=== PATIENT | female | born 1970 | race Caucasian/White ===

== ENCOUNTER 2016-12-18 10:30 | Emergency (ER) | payer MEDICARE ==
[2016-12-18] MEDS ORDERED: Ibuprofen TAB* 600 MG PO ONE (11:03)
--- NOTE | 2016-12-18 11:18 | ED ---
Influenza-Like Illness - HPI Summary HPI Summary: Pt here w/ flu-like sx - started as a frontal SUMMERS last night after work which wrapped around to back of head. This improved w/ ibuprofen. She woke this morning w/ nasal congestion, sneezing, ST. Went to work and developed upper chest tightness w/ a dry cough and subjective fever/chills. Received influenza vaccine 3 days ago. Works at [employer]. H/o emphysema but does not use inhaler(s ) as breathing is typically well controlled. She does smoke. H/o PE which started as a leg clot - denies calf pain today and states her chest sx do NOT feel the same as PE which was a stabbing, knife-like pain - this is a dry cough w/ burning tight upper chest pain. Does not want to try breathing tx as she denies wheezing or SOB. Denies N/V/D, ab pain, rash, back pain, hemoptysis. - History of Current Complaint Chief Complaint: EDUpperRespComplaint Time Seen by Provider: 12/18/16 10:50 Hx Obtained From: Patient - Allergy/Home Medications Allergies/Adverse Reactions: Allergies Allergy/AdvReac Type Severity Reaction Status Date / Time Bee Venom Allergy Severe Anaphylatic Verified 02/12/16 09:46 Shock Ciprofloxacin [From Cipro] Allergy Mild Rash. Verified 02/12/16 09:46 DIFFICULTY BREATHING PMH/Surg Hx/FS Hx/Imm Hx Previously Healthy: Yes Endocrine/Hematology History: Reports: Hx Anticoagulant Therapy - coumadin FOR PE, Hx Thyroid Disease - HYPOTHYROID, Hx Anemia - A TEENAGER Denies: Hx Diabetes, Hx Systemic Lupus Erythematosus Cardiovascular History: Reports: Hx Hypercholesterolemia Denies: Hx Congestive Heart Failure Respiratory History: Reports: Hx Chronic Obstructive Pulmonary Disease (COPD), Hx Pulmonary Embolism - ABOUT 10 YEARS AGO, Other Respiratory Problems/ Disorders - Hx of pulmonary embolismin [id number] per Pt. GI History: Reports: Hx Gastroesophageal Reflux Disease - ON MEDICATION Denies: Other GI Disorders History: Denies: Hx Renal Disease Sensory History: Reports: Hx Contacts or Glasses - GLASSES FOR DISTANCE Denies: Hx Hearing Aid Opthamlomology History: Reports: Hx Contacts or Glasses - GLASSES FOR DISTANCE Psychiatric History: Reports: Hx Depression - ON MEDICATION FOR, Hx Schizophrenia - SCHIZOAFFECTIVE Denies: Hx Eating Disorder, Hx of Violent Episodes Against Others - Surgical History Surgery Procedure, Year, and Place: 10/2012, [facility] Hx Anesthesia Reactions: No - Immunization History Date of Tetanus Vaccine: 10 yrs ago Infectious Disease History: No Infectious Disease History: Denies: Traveled Outside the [place] in Last 30 Days - Family History Known Family History: Positive: Other - cancers - Social History Occupation: Employed Part-time - [employer] Alcohol Use: None Hx Substance Use: No Substance Use Type: Reports: None Hx Tobacco Use: Yes Smoking Status (MU): Current Every Day Smoker Type: Cigarettes Amount Used/How Often: 1/2 PPD Length of Time of Smoking/Using Tobacco: 10+ yrs Have You Smoked in the Last Year: No Review of Systems Constitutional: Other - see HPI Negative: Photophobia, Blurred Vision, Diplopia, Drainage, Erythema Positive: Sore Throat, Nasal Discharge. Negative: Ear Ache Negative: Palpitations, Chest Pain Positive: Cough. Negative: Shortness Of Breath Negative: Abdominal Pain, Vomiting, Diarrhea, Nausea Positive: no symptoms reported Musculoskeletal: Other - generalized myalgias Negative: Rash Positive: Headache - last night - okay today - see HPI. Negative: Weakness, Paresthesia, Numbness, Syncope, Slurred Speech Psychological: Normal - concerned All Other Systems Reviewed And Are Negative: Yes Physical Exam Triage Information Reviewed: Yes Vital Signs On Initial Exam: Initial Vitals Temp Pulse Resp BP Pulse Ox 98.7 F 113 20 131/73 100 12/18/16 10:33 12/18/16 10:33 12/18/16 10:33 12/18/16 10:33 12/18/16 10:33 Vital Signs Reviewed: Yes Appearance: Positive: Well-Appearing, No Pain Distress, Obese Skin: Positive: Warm, Dry - no rash observed Head/Face: Positive: Normal Head/Face Inspection - sinuses NTTP Eyes: Positive: Normal, EOMI, Conjunctiva Clear. Negative: Conjunctiva Inflammed, Discharge ENT: Positive: Normal ENT inspection, Hearing grossly normal, Pharynx normal - oral mucosa dry, Nasal congestion, TMs normal. Negative: Nasal drainage, Tonsillar swelling, Tonsillar exudate Neck: Positive: Supple, Nontender, No Lymphadenopathy Respiratory/Lung Sounds: Positive: Clear to Auscultation, Breath Sounds Present. Negative: Rales, Rhonchi, Stridor, Wheezes Cardiovascular: Positive: Normal, RRR, S1, S2. Negative: Leg Edema Left - (-) Shiloh's B/L, Leg Edema Right Abdomen Description: Positive: Nontender, No Organomegaly, Soft Bowel Sounds: Positive: Present Musculoskeletal: Positive: Normal, Strength/ROM Intact Neurological: Positive: Normal, Sensory/Motor Intact, Alert, Oriented to Person Place, Time, CN Intact II-III Psychiatric: Positive: Other - calm, pleasant, cooperative - concerned/anxious ( mild) - blunted affect Diagnostics - Vital Signs Vital Signs Temp Pulse Resp BP Pulse Ox 12/18/16 10:37 98.7 F 104 20 131/73 97 12/18/16 10:33 98.7 F 113 20 131/73 100 - Laboratory Lab Statement: Any lab studies that have been ordered have been reviewed, and results considered in the medical decision making process. Flu Symptom Course/Dx - Diagnoses Provider Diagnoses: Influenza B Discharge - Discharge Plan Condition: Stable Disposition: HOME Prescriptions: Oseltamivir CAP* [Tamiflu CAP*] 75 mg PO BID #10 cap Patient Education Materials: Influenza (ED) Forms: *Work Release Referrals: Arthur Rockwell MD [Primary Care Provider] - Additional Instructions: You have influenza. You are contagious. Wear a face mask and wash hands well. Return to work in 1 week. Follow-up with PCP. You may use supportive care measure to ease your discomfort. These include but are not limited to: Nasal wash (netti pot) & throat gargle 2 x day with 8 ounces of warm water + 1/ 4 teaspoon of salt Drink 60+ ounces of water daily Sleep 8+ hours per night Avoid Dairy and sugar Hot herbal/decaf tea with lemon & honey Chicken broth (preferably organic, free range chicken) Cough drops Humidifier in house, but especially near bed at night Try a facial steam with or without eucalyptus essential oil and/or Vicks vapor rub Consider taking Vitamin D3 5,000iu and Vitamin C 1,000mg every day during illness *If you have difficulty breathing, swallowing or fever > 103 uncontrolled w/ acetaminophen or ibuprofen, return to ED.
[2016-12-18 12:32] VITALS: BP 119/65
== END 2016-12-18 12:31 | disposition home or self-care (01) ==
LOC: ED 10:30
DX: J11.1 Influenza due to unidentified influenza virus with other respiratory manifestations (principal); R51 Headache; R50.9 Fever, unspecified; F17.210 Nicotine dependence, cigarettes, uncomplicated; J02.9 Acute pharyngitis, unspecified; R05 Cough; R19.7 Diarrhea, unspecified; R11.2 Nausea with vomiting, unspecified
CPT/HCPCS: 87502; 99282; A9270-GY

== ENCOUNTER 2017-07-30 07:56 | Emergency (ER) | payer MEDICARE ==
[2017-07-30 08:24] LABS: Hematocrit 44 % (35-47); Mean Corpuscular HGB Conc 34 g/dl (31-36); Mean Corpuscular Hemoglobin 33 pg (27-31); Mean Corpuscular Volume 96 fL (80-97); Mean Platelet Volume 9 um3 (7.4-10.4); Red Blood Count 4.56 10^6/ul (4.0-5.4); Red Cell Distribution Width 13 % (10.5-15); White Blood Count 8.2 10^3/ul (3.5-10.8)
--- NOTE | 2017-07-30 08:36 | RAD ---
INDICATION: Palpitations and shortness of breath. Fullness sensation in throat beginning a few days ago. Remote history of PE. COMPARISON: January 26, 2016 TECHNIQUE: Dual energy PA and routine lateral views of the chest were obtained. REPORT: Clear lungs and pleural spaces. Negative for pneumothorax. The heart, pulmonary vasculature, and mediastinal contours are unremarkable. Unremarkable osseous structures and soft tissue contours. IMPRESSION: No evidence for pneumonia. No evidence for acute intrathoracic disease.
[2017-07-30 08:46] LABS: Albumin 4.6 g/dL (3.2-5.2); BUN/Creatinine Ratio 11.8 (8-20); Calcium 10.2 mg/dL (8.6-10.3); EGFR African American 83.1 (>60); EGFR Non-African American 64.6 (>60); Globulin 3.6 g/dL (2-4); Magnesium 1.9 mg/dL (1.9-2.7); Potassium 3.4 mmol/L (3.5-5.0); Total Bilirubin 0.5 mg/dL (0.2-1.0); Total Protein 8.2 g/dL (6.4-8.9)
[2017-07-30] MEDS ORDERED: Potassium Chlor TAB* 20 MEQ TAB.ER PO ONE (08:58)
[2017-07-30 09:09] LABS: TSH (Thyroid Stimulating Horm) 5.32 mcIU/mL (0.34-5.60)
[2017-07-30 09:22] LABS: Urine Bilirubin Negative (Negative); Urine Glucose Negative (Negative); Urine Nitrite Negative (Negative)
[2017-07-30 10:12] VITALS: BP 124/78
--- NOTE | 2017-07-30 10:28 | ED ---
Elaine Villarreal Gabriel, scribed for Bryce Armas MD on 07/30/17 at 0810 . Shortness of Breath - HPI Summary HPI Summary: This patient is a 47 year old F presenting to [facility] with a chief complaint of SOB since yesterday. Patient reports palpitations described as fluttering, stomach acid rising into her throat, and fullness in her chest and throat. Patient denies CP and LE pain. She had two of these episodes yesterday and three today. She describes these as intermittent episodes that resolve spontaneously. - History of Current Complaint Chief Complaint: EDShortnessOfBreath Time Seen by Provider: 07/30/17 08:01 Hx Obtained From: Patient Onset/Duration: Lasting Days - 1, Still Present Alleviating Factors: Spontaneous Resolution Associated Signs & Symptoms: Negative - CP and LE pain - Allergy/Home Medications Allergies/Adverse Reactions: Allergies Allergy/AdvReac Type Severity Reaction Status Date / Time Bee Venom Allergy Severe Anaphylatic Verified 07/30/17 08:07 Shock Ciprofloxacin [From Cipro] Allergy Mild Rash. Verified 07/30/17 08:07 DIFFICULTY BREATHING PMH/Surg Hx/FS Hx/Imm Hx Previously Healthy: No Endocrine/Hematology History: Reports: Hx Anticoagulant Therapy - coumadin FOR PE, Hx Thyroid Disease - HYPOTHYROID, Hx Anemia - A TEENAGER Denies: Hx Diabetes, Hx Systemic Lupus Erythematosus Cardiovascular History: Reports: Hx Hypercholesterolemia Denies: Hx Congestive Heart Failure Respiratory History: Reports: Hx Chronic Obstructive Pulmonary Disease (COPD), Hx Pulmonary Embolism - ABOUT 10 YEARS AGO, Other Respiratory Problems/ Disorders - Hx of pulmonary embolismin [id number] per Pt. GI History: Reports: Hx Gastroesophageal Reflux Disease - ON MEDICATION Denies: Other GI Disorders History: Denies: Hx Renal Disease Sensory History: Reports: Hx Contacts or Glasses - GLASSES FOR DISTANCE Denies: Hx Hearing Aid Opthamlomology History: Reports: Hx Contacts or Glasses - GLASSES FOR DISTANCE Psychiatric History: Reports: Hx Depression - ON MEDICATION FOR, Hx Schizophrenia - SCHIZOAFFECTIVE Denies: Hx Eating Disorder, Hx of Violent Episodes Against Others - Surgical History Surgery Procedure, Year, and Place: 10/2012, [facility], Cholecystectomy Hx Anesthesia Reactions: No - Immunization History Date of Tetanus Vaccine: 10 yrs ago Infectious Disease History: No Infectious Disease History: Denies: Traveled Outside the [place] in Last 30 Days - Family History Known Family History: Positive: Hypertension, Other - cancers, blood clots - Social History Alcohol Use: None Hx Substance Use: No Substance Use Type: Reports: None Hx Tobacco Use: Yes Smoking Status (MU): Current Every Day Smoker Type: Cigarettes Amount Used/How Often: 3/4 PPD Length of Time of Smoking/Using Tobacco: 10+ yrs Have You Smoked in the Last Year: No Review of Systems Positive: Palpitations - described as fluttering. Negative: Chest Pain Positive: Shortness Of Breath Positive: Other - stomach acid rising into throat Musculoskeletal: Negative - LE pain All Other Systems Reviewed And Are Negative: Yes Physical Exam - Summary Physical Exam Summary: VITAL SIGNS: Reviewed. GENERAL: ~Patient is a well-developed and nourished female who is lying comfortable in hospital bed . ~Patient is not in any acute respiratory distress. HEAD AND FACE: No signs of trauma. ~No ecchymosis, hematomas or skull depressions. No sinus tenderness. EYES: PERRLA, EOMI x 2, No injected conjunctiva, no nystagmus. EARS: Hearing grossly intact. Ear canals and tympanic membranes are within normal limits. MOUTH: Oropharynx within normal limits. NECK: Supple, trachea is midline, no adenopathy, no JVD, no carotid bruit, no c- spine tenderness, neck with full ROM. CHEST: Symmetric, no tenderness at palpation LUNGS: Clear to auscultation bilaterally. No crackles. Wheezes present. CVS: Regular rhythm, S1 and S2 present, no murmurs or gallops appreciated. Patient is tachycardic. ABDOMEN: Soft, non-tender. No signs of distention. No rebound no guarding, and no masses palpated. Bowel sounds are normal. EXTREMITIES: FROM in all major joints, no edema, no cyanosis or clubbing. NEURO: Alert and oriented x 3. No acute neurological deficits. Speech is normal and follows commands. SKIN: Dry and warm Triage Information Reviewed: Yes Vital Signs On Initial Exam: Initial Vitals Temp Pulse Resp BP Pulse Ox 98.6 F 100 22 139/58 99 07/30/17 07:56 07/30/17 07:56 07/30/17 07:56 07/30/17 07:56 07/30/17 07:56 Vital Signs Reviewed: Yes Diagnostics - Vital Signs Vital Signs Temp Pulse Resp BP Pulse Ox 07/30/17 07:56 98.6 F 100 22 139/58 99 - Laboratory Lab Results: Lab Results 07/30/17 07/30/17 07/30/17 Range/Units 08:14 08:14 08:14 WBC 8.2 (3.5-10.8) 10^3/ul RBC 4.56 (4.0-5.4) 10^6/ul Hgb 15.0 (12.0-16.0) g/dl Hct 44 (35-47) % MCV 96 (80-97) fL MCH 33 H (27-31) pg MCHC 34 (31-36) g/dl RDW 13 (10.5-15) % Plt Count 208 (150-450) 10^3/ul MPV 9 (7.4-10.4) um3 Neut % (Auto) 50.0 (38-83) % Lymph % (Auto) 39.0 (25-47) % [place] % (Auto) 7.8 (1-9) % Eos % (Auto) 2.1 (0-6) % Baso % (Auto) 1.1 (0-2) % Absolute Neuts (auto) 4.1 (1.5-7.7) 10^3/ul Absolute Lymphs (auto) 3.2 (1.0-4.8) 10^3/ul Absolute Monos (auto) 0.6 (0-0.8) 10^3/ul Absolute Eos (auto) 0.2 (0-0.6) 10^3/ul Absolute Basos (auto) 0.1 (0-0.2) 10^3/ul Absolute Nucleated RBC 0 10^3/ul Nucleated RBC % 0 D-Dimer, Quantitative (Less Than 230) ng/mL Sodium 137 (133-145) mmol/L Potassium 3.4 L (3.5-5.0) mmol/L Chloride 106 (101-111) mmol/L Carbon Dioxide 25 (22-32) mmol/L Anion Gap 6 (2-11) mmol/L BUN 11 (6-24) mg/dL Creatinine 0.93 (0.51-0.95) mg/dL Est GFR ( Amer) 83.1 (>60) Est GFR (Non-Af Amer) 64.6 (>60) BUN/Creatinine Ratio 11.8 (8-20) Glucose 90 (70-100) mg/dL Lactic Acid (0.5-2.0) mmol/L Calcium 10.2 (8.6-10.3) mg/dL Magnesium 1.9 (1.9-2.7) mg/dL Total Bilirubin 0.50 (0.2-1.0) mg/dL AST 23 (13-39) U/L ALT 29 (7-52) U/L Alkaline Phosphatase 56 (34-104) U/L CK-MB (CK-2) 1.6 (0.6-6.3) ng/mL Troponin I 0.00 (<0.04) ng/mL B-Natriuretic Peptide 17 ( - 100) pg/mL Total Protein 8.2 (6.4-8.9) g/dL Albumin 4.6 (3.2-5.2) g/dL Globulin 3.6 (2-4) g/dL Albumin/Globulin Ratio 1.3 (1-3) TSH 5.32 (0.34-5.60) mcIU/mL Urine Color Urine Appearance Urine pH (5-9) Ur Specific [place] (1.010-1.030) Urine Protein (Negative) Urine Ketones (Negative) Urine Blood (Negative) Urine Nitrate (Negative) Urine Bilirubin (Negative) Urine Urobilinogen (Negative) Ur Leukocyte Esterase (Negative) Urine Glucose (Negative) 07/30/17 07/30/17 07/30/17 Range/Units 08:14 08:14 09:14 WBC (3.5-10.8) 10^3/ul RBC (4.0-5.4) 10^6/ul Hgb (12.0-16.0) g/dl Hct (35-47) % MCV (80-97) fL MCH (27-31) pg MCHC (31-36) g/dl RDW (10.5-15) % Plt Count (150-450) 10^3/ul MPV (7.4-10.4) um3 Neut % (Auto) (38-83) % Lymph % (Auto) (25-47) % [place] % (Auto) (1-9) % Eos % (Auto) (0-6) % Baso % (Auto) (0-2) % Absolute Neuts (auto) (1.5-7.7) 10^3/ul Absolute Lymphs (auto) (1.0-4.8) 10^3/ul Absolute Monos (auto) (0-0.8) 10^3/ul Absolute Eos (auto) (0-0.6) 10^3/ul Absolute Basos (auto) (0-0.2) 10^3/ul Absolute Nucleated RBC 10^3/ul Nucleated RBC % D-Dimer, Quantitative < 200 (Less Than 230) ng/mL Sodium (133-145) mmol/L Potassium (3.5-5.0) mmol/L Chloride (101-111) mmol/L Carbon Dioxide (22-32) mmol/L Anion Gap (2-11) mmol/L BUN (6-24) mg/dL Creatinine (0.51-0.95) mg/dL Est GFR ( Amer) (>60) Est GFR (Non-Af Amer) (>60) BUN/Creatinine Ratio (8-20) Glucose (70-100) mg/dL Lactic Acid 1.4 (0.5-2.0) mmol/L Calcium (8.6-10.3) mg/dL Magnesium (1.9-2.7) mg/dL Total Bilirubin (0.2-1.0) mg/dL AST (13-39) U/L ALT (7-52) U/L Alkaline Phosphatase (34-104) U/L CK-MB (CK-2) (0.6-6.3) ng/mL Troponin I (<0.04) ng/mL B-Natriuretic Peptide ( - 100) pg/mL Total Protein (6.4-8.9) g/dL Albumin (3.2-5.2) g/dL Globulin (2-4) g/dL Albumin/Globulin Ratio (1-3) TSH (0.34-5.60) mcIU/mL Urine Color Straw Urine Appearance Clear Urine pH 6.0 (5-9) Ur Specific [place] 1.003 L (1.010-1.030) Urine Protein Negative (Negative) Urine Ketones Negative (Negative) Urine Blood Negative (Negative) Urine Nitrate Negative (Negative) Urine Bilirubin Negative (Negative) Urine Urobilinogen Negative (Negative) Ur Leukocyte Esterase Negative (Negative) Urine Glucose Negative (Negative) Result Diagrams: 07/30/17 08:14 07/30/17 08:14 Lab Statement: Any lab studies that have been ordered have been reviewed, and results considered in the medical decision making process. - Radiology CXR Radiology Interpretation Completed By: Radiologist - No evidence for pneumonia. No evidence for acute intrathoracic disease. ED physician has reviewed this radiology report and agrees. - EKG 8:27 Cardiac Rate: NL EKG Rhythm: Sinus Rhythm - 88 BPM EKG Interpretation: No ST elevations, Normal axis Re-Evaluation - Re-Evaluation First Eval Re-Evaluation Time: 10:12 Change: Unchanged - Discussed patient care Course/Dx - Course Assessment/Plan: In the ED course an IV access was obtained. Patient was placed in a business excellence leader. Patient was started with IV fluids. Labs without any significant abnormality except for K+ for which she was given potassium chloride. Troponin #1: 0.00. EKG shows a NSR at w/o ST elevations. CXR impression: No acute pathology. D Dimer is negative therefore no suspicion for PE. Patient may benefit from a Holter monitor as an outpatient. I discussed all the findings and test results with the patient. Patient was instructed to return to the emergency room immediately if any of the symptoms return or worsens. Plan of care was discussed with the patient and understands and agrees. All questions were answered at patient satisfaction. There were no further complaints or concerns. Lung exam before discharge: CTA B/L. Good air exchange. No wheezing or crackles heard. CVS: S1 and S2 present. No murmurs appreciated. Patient is alert and oriented x 3. Patient is hemodynamically stable. Patient will be discharged home with follow up PCP in the next 2-3 days - Diagnoses Differential Diagnosis/HQI/PQRI: Positive: Asthma, Bronchitis, CHF, Pneumonia, Other - Arrythmia Provider Diagnoses: Palpitations Discharge - Discharge Plan Condition: Stable Disposition: HOME Patient Education Materials: Palpitations (ED) Referrals: Arthur Rockwell MD [Primary Care Provider] - 3 Days Additional Instructions: RETURN TO THE EMERGENCY DEPARTMENT FOR CHANGING OR WORSENING SYMPTOMS. The documentation as recorded by the Elaine jones Gabriel accurately reflects the service I personally performed and the decisions made by Pawel frey Walter, MD.
== END 2017-07-30 10:24 | disposition home or self-care (01) ==
LOC: ED 07:56
DX: R00.2 Palpitations (principal); R06.02 Shortness of breath; R06.2 Wheezing; F17.210 Nicotine dependence, cigarettes, uncomplicated
CPT/HCPCS: 36415; 71020; 80053; 81003; 82553; 83605; 83735; 83880; 84443; 84484; 85025; 85379; 93005; 99283; A9270-GY

== ENCOUNTER 2017-09-06 21:27 | Inpatient (IN) | payer BC, MEDICARE ==
--- OUTSIDE RECORDS SUMMARY | 2017-09-06 21:43 | XMS REPORT ---
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 Onset: 04/27/2012 Hypothyroidism Layla Aguilera, Active N.P. Onset: 04/27/2012 Overweight Layla Aguilera Active N.P. Onset: 04/27/2012 Tobacco user Layla Aguilera, Active N.P. Onset: 05/04/2012 Mixed hyperlipidemia Layla Aguilera, Active N.P. Onset: 05/04/2012 Hyperlipidemia Layla Aguilera, Active N.P. Onset: 02/10/2016 Cholecystectomy Duong Ruby NP Active Onset: 02/09/2017 High density lipoprotein Nguyen Kim M.D. Active deficiency Onset: 08/02/2017 H/O: pulmonary embolus Arthur Rockwell, Active Valerie,FACP Note: 2006 Onset: 05/18/2012 Chest pain Layla Aguilera N.PRobyn Inactive Inactive: 09/09/2012 Onset: 04/27/2012 Anticoagulants Prison Layla Aguilera N.PRobyn Inactive (Current) Use Encounter Inactive: 08/02/2017 Onset: 12/24/2016 Schizoaffective disorder Jonah Romero M.D. 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 Cigarette Use Patient is a current cigarette smoker, smokes every day Cigarette Use Pack Years - Cigarette Use 3 PPD ETOH Use Denies alcohol use Smoking Patient is a current smoker, Started 09/07 ppd smokes every day Daily Caffeine Consumes on average 5-10 cups of hot tea per day Exercise Type/Frequency Exercises regularly Walking Currently Active Patient is currently sexually active Condom Use Always Age 1st [place] 18 Years Old # Partners in a Lifetime over 10 STD's 02/2012 Trichomoniasis STD's HPV, High Risk General Hx Text 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 02/09 Nexium 01/[address] 20mg 14cap 1 by mouth Other s every day Ordering - Provider 02/09 Amoxicillin 05/30 Hx Capsules 500mg 30cap 1 tablet by K04.0 Duong s mouth tid x Tung, - 10 days WIRE ANNEALER 06/09 Levaquin 02/25 Hx Tablets 500mg 10tab 1 by mouth 789.04 Randall s every day Shavon Navarrete M.D. 02/26 Metronidazole 02/25 Hx Tablets 500mg 30tab 1 by mouth 789.04 Randall s three times a Navarrete, - day M.D. 02/26 Bactrim DS 02/25 Hx Tablets 800-160mg 10tab 1 by mouth Randall s twice a day Shavon Navarrete M.DRobyn 05/21 Fluticasone 07/17 Hx Suspension 50mcg/Act 1unit 2 sprays each 465.8 Duong Propionate s nare daily Tung - x's 4 weeks WIRE ANNEALER 08/14 Ibuprofen 07/17 Hx Tablets 400mg 45tab 1 tab po 729.5 Duong s every 6 hours Tung, - prn for pain WIRE ANNEALER 02/24 Flovent HFA 01/18 Hx Aerosol 1unit 2 puffs twice Mont[place], s daily Shavon Marquez MD 02/14 Levothyroxine 12/07 Hx Tablets 75mcg 30tab take one tab Bryce E. Sodium s by mouth Cherri - every day M.D. 02/09 Symbicort 05/24 Hx Aerosol 160-4.5mc 1unit 2 puffs po Layla g/Act s bid [place]-[facility] - [place], 11/29 N.P. /2013 Flonase 05/24 Hx Suspension 50mcg/Act 16gm 2 sprays into 477.9 Layla each nostril Celio - qhs [place], 11/29 N.P. /2013 Ventolin HFA 05/24 Hx Aerosol 108(90Bas 1unit 2 puffs po Layla e) s qid prn [place] - mcg/Act [place], 11/29 N.P. /2013 Aspirin 04/04 Hx Tablets 81mg 90tab 1 po qd Shavon Bloom M.D.,[facility] 07/17 Metformin HCL 03/22 Hx Tablets 1000mg 60tab 1 po bid 278.02 s Shavon Be M.D.,[facility] 05/24 Warfarin 12/12 Hx Tablets 4mg 30tab take one s tablet daily Shavon Be M.D.,[facility] 04/04 [place] 3 11/16 Hx Capsules 1000mg 90cap 3 by mouth 272.2 s every day Shavon Be M.D.,[facility] 02/24 Coumadin 11/11 Hx Tablets 1mg 15tab 1 po qd with s 5mg as Martín Rockwell - [place] Padilla,[facility] 12/12 Lovenox 10/20 Hx Solution 100mg/ml 10uni 1 ts subcutaneousl [place] - y q12h as [place], 11/16 directed N.P. /2012 Phytonandione 10/20 Hx Tablets 5mg 4tabs 1 po x1 now and again in [facility] 3-4 hrs X1, [place], 01/18 then as N.P. /2013 directed Warfarin 09/12 Hx Tablets 2.5mg take one tab Layla Sodium po wednesday, [place] - wednesday, [place], 11/11, N.P. /2012 and wednesday T.E.D. Below 06/17 Hx Misc 1Pair please fit 782.3 Yarelis Knee/Medium /2011 Melecio, - N.P. 07/17 Warfarin 05/18 Hx Tablets 2.5mg 40tab take one tab Layla Sodium /2011 s po Wednesday, [place] - , [place], 09/12 N.P. /2012 Pravastatin 05/04 Hx Tablets 10mg 30tab take one tab 272.4 Layla Sodium /2011 s daily in the [place] - evening [place], 05/18 N.P. /2011 [place] 3 05/04 Hx Capsules 1000mg 90cap 3 po qd 272.4 Layla s [place] - [place], 05/18 N.P. /2011 Warfarin Hx Tablets 5mg 30tab take one pill Layla Sodium /0000 s Wednesday and [place] - Wednesday [place], 12/12 N.P. /2012 Levothyroxine Hx Tablets 50mcg 90tab 1 po qd Arthur Sodium / s Shavon Be M.D.,FACP 12/07 Sertraline HCL Hx Tablets 100mg 30tab 1 po qd Unknown /0000 s - 02/24 Benztropine Hx Tablets 0.5mg 30tab 1 po qhs Unknown Mesylate /0000 s - 02/24 Fish Oil Hx Capsules 300mg 1 po qd Alyla / ats, 11/16 N.P. /2012 Flovent HFA Hx Aerosol 1unit Hold until Unknown /0000 s symbicort is - gone. Then 11/29 resume puffs twice daily Abilify Hx Suspension 400mg Patient Unknown Maintena /0000 Rec receives - 400mg 12/23 injection /2016 form Medications Administered in Office Medication Date Status Form Strength Qnty SIG Indications Ordering Provider PPD Administered Injection Nurse Visit 4 [place] PPD Administered Injection Layla 3 [place] on, N.P. Immunizations CPT Code Status Date Vaccine Lot # [id number] Given 06/06/2017 Influenza Virus Vaccine, Quadrivalent, Split, Preservative Free [id number] Given 02/14/2014 Tdap - Tetanus/Diptheria/Acellular Pertussis [id number] Given 10/24/2012 Measles Mumps And Rubella MMR [id number] Given 09/06/2003 Pneumonia Vaccine Vital Signs Date Vital Result Comment 08/02/2017 Weight 215.56 lb Heart Rate 79 /min BP Systolic Sitting 115 mmHg BP Diastolic Sitting 70 mmHg O2 % BldC Oximetry 99 % 02/09/2017 Weight 211.00 lb Heart Rate 88 /min BP Systolic Sitting 110 mmHg BP Diastolic Sitting 70 mmHg Respiratory Rate 16 /min Body Temperature 96.8 F O2 % BldC Oximetry 97 % 12/24/2016 Height 69 inches 5'9" Weight 219.00 lb Heart Rate 100 /min BP Systolic Sitting 116 mmHg BP Diastolic Sitting 88 mmHg Body Temperature 97.9 F O2 % BldC Oximetry 97 % BMI (Body Mass Index) 32.3 kg/m2 01/27/2016 Height 69 inches 5'9" Weight 213.00 lb Heart Rate 98 /min BP Systolic Sitting 118 mmHg BP Diastolic Sitting 84 mmHg Body Temperature 98.7 F O2 % BldC Oximetry 98 % BMI (Body Mass Index) 31.5 kg/m2 12/04/2015 Height 69 inches 5'9" Weight 210.00 lb Heart Rate 80 /min BP Systolic Sitting 114 mmHg BP Diastolic Sitting 78 mmHg Body Temperature 97.8 F O2 % BldC Oximetry 98 % BMI (Body Mass Index) 31.0 kg/m2 10/11/2015 Height 69 inches 5'9" Weight 214.00 lb Heart Rate 102 /min BP Systolic Sitting 110 mmHg BP Diastolic Sitting 68 mmHg Body Temperature 96.5 F O2 % BldC Oximetry 96 % BMI (Body Mass Index) 31.6 kg/m2 05/30/2015 Height 69 inches 5'9" Weight 207.00 lb Heart Rate 76 /min BP Systolic Sitting 112 mmHg BP Diastolic Sitting 70 mmHg Body Temperature 97.3 F O2 % BldC Oximetry 98 % BMI (Body Mass Index) 30.6 kg/m2 05/21/2015 Height 69 inches 5'9" Weight 208.00 lb Heart Rate 71 /min BP Systolic Sitting 126 mmHg BP Diastolic Sitting 78 mmHg Body Temperature 97.1 F O2 % BldC Oximetry 97 % BMI (Body Mass Index) 30.7 kg/m2 02/25/2015 Height 69 inches 5'9" Weight 198.38 lb Heart Rate 102 /min BP Systolic Sitting 104 mmHg BP Diastolic Sitting 66 mmHg Body Temperature 98.0 F O2 % BldC Oximetry 98 % BMI (Body Mass Index) 29.3 kg/m2 07/27/2014 Height 69 inches 5'9" Weight 212.00 lb Heart Rate 73 /min BP Systolic 115 mmHg BP Diastolic 74 mmHg BMI (Body Mass Index) 31.3 kg/m2 07/17/2014 Weight 220.75 lb Heart Rate 80 /min BP Systolic Sitting 132 mmHg BP Diastolic Sitting 76 mmHg Respiratory Rate 16 /min Body Temperature 98.9 F O2 % BldC Oximetry 97 % 04/23/2014 Weight 223.75 lb Heart Rate 88 /min BP Systolic Sitting 118 mmHg BP Diastolic Sitting 72 mmHg Body Temperature 96.9 F 02/28/2014 Height 68.25 inches 5'8.25" Weight 227.50 lb Heart Rate 88 /min BP Systolic Sitting 118 mmHg BP Diastolic Sitting 68 mmHg Body Temperature 98.0 F BMI (Body Mass Index) 34.3 kg/m2 02/14/2014 Height 68.5 inches 5'8.50" Weight 229.75 lb Heart Rate 84 /min BP Systolic Sitting 106 mmHg BP Diastolic Sitting 66 mmHg Body Temperature 96.7 F BMI (Body Mass Index) 34.4 kg/m2 01/18/2014 Weight 230.50 lb Heart Rate 78 /min BP Systolic Sitting 124 mmHg BP Diastolic Sitting 78 mmHg Body Temperature 98.5 F O2 % BldC Oximetry 97 % 11/29/2013 Weight 230.00 lb Heart Rate 90 /min BP Systolic Sitting 132 mmHg BP Diastolic Sitting 82 mmHg 05/24/2013 Height 68 inches 5'8" Weight 225.50 lb Heart Rate 88 /min BP Systolic Sitting 106 mmHg BP Diastolic Sitting 66 mmHg BMI (Body Mass Index) 34.3 kg/m2 03/22/2013 Height 68.25 inches 5'8.25" Weight 223.00 lb Heart Rate 82 /min BP Systolic Sitting 106 mmHg BP Diastolic Sitting 70 mmHg BMI (Body Mass Index) 33.7 kg/m2 01/04/2013 Height 68.25 inches 5'8.25" Weight 223.25 lb Heart Rate 84 /min BP Systolic Sitting 120 mmHg BP Diastolic Sitting 74 mmHg BMI (Body Mass Index) 33.7 kg/m2 11/16/2012 Height 68.25 inches 5'8.25" Weight 222.00 lb Heart Rate 78 /min BP Systolic Sitting 140 mmHg BP Diastolic Sitting 82 mmHg BMI (Body Mass Index) 33.5 kg/m2 10/19/2012 Height 68.25 inches 5'8.25" Weight 228.75 lb Heart Rate 78 /min BP Systolic Sitting 130 mmHg BP Diastolic Sitting 78 mmHg BMI (Body Mass Index) 34.5 kg/m2 06/17/2012 Height 68.25 inches 5'8.25" Weight 221.00 lb Heart Rate 62 /min BP Systolic Sitting 110 mmHg BP Diastolic Sitting 82 mmHg Body Temperature 97.2 F lt ear BMI (Body Mass Index) 33.4 kg/m2 05/18/2012 Height 68.25 inches 5'8.25" Weight 219.00 lb Heart Rate 76 /min BP Systolic Sitting 112 mmHg BP Diastolic Sitting 70 mmHg BMI (Body Mass Index) 33.1 kg/m2 05/04/2012 Height 68.25 inches 5'8.25" Weight 221.00 lb Heart Rate 70 /min BP Systolic Sitting 100 mmHg BP Diastolic Sitting 76 mmHg BMI (Body Mass Index) 33.4 kg/m2 04/27/2012 Height 68.25 inches 5'8.25" Weight 218.00 lb Heart Rate 80 /min BP Systolic Sitting 118 mmHg BP Diastolic Sitting 64 mmHg Body Temperature 98.0 F lt ear BMI (Body Mass Index) 32.9 kg/m2 Results Test Date Test Result H/L Range Note Urinalysis Profile 07/30/2017 Urine Color Straw Urine Appearance Clear Urine Specific Isabella 1.003 Low 1.010-1.030 Urine pH 6.0 5-9 Urine Urobilinogen Negative Negative Urine Ketones Negative Negative Urine Protein Negative Negative Urine Leukocytes Negative Negative Urine Blood Negative Negative Urine Nitrite Negative Negative Urine Bilirubin Negative Negative Urine Glucose Negative Negative Laboratory test finding 01/13/2017 TSH (Thyroid Stim Horm) 3.86 mcIU/mL 0.34-5.60 Lipid Profile 01/13/2017 Triglycerides 192 mg/dL 1 (Trig/Chol/HDL) Cholesterol 187 mg/dL 2 HDL Cholesterol 30.5 mg/dL 3 LDL Cholesterol 118 mg/dL 4 Rapid Influenza A & B 12/18/2016 Influenza A Molecular NEGATIVE Negative 5 Molecular Influenza B Molecular POSITIVE Negative Laboratory test finding 12/18/2016 Rapid Influenza A B SEE RESULT BELOW 6 Antigen Ua Routine 01/27/2016 Ua Specific Isabella 1.015 Ua PH 5 Ua Color yellow Ua Appera clear Ua WBC neg Ua Protein neg Ua Glucose neg Ua Ketones neg Ua Bilirubin neg Ua Urobilinogen normal Ua Nitrite neg Ua Occult Blood neg Comp Metabolic Panel 01/26/2016 Sodium 136 mmol/L 133-145 Potassium 3.8 mmol/L 3.5-5.0 Chloride 107 mmol/L 101-111 Co2 Carbon Dioxide 21 mmol/L Low 22-32 Anion Gap 8 mmol/L 2-11 Glucose 89 mg/dL 70-100 Blood Urea Nitrogen 11 mg/dL 6-24 Creatinine 0.84 mg/dL 0.51-0.95 BUN/Creatinine Ratio 13.1 8-20 Calcium 9.8 mg/dL 8.6-10.3 Total Protein 7.5 g/dL 6.4-8.9 Albumin 4.6 g/dL 3.2-5.2 Globulin 2.9 g/dL 2-4 Albumin/Globulin Ratio 1.6 1-3 Total Bilirubin 0.30 mg/dL 0.2-1.0 Alkaline Phosphatase 44 U/L 34-104 Alt 22 U/L 7-52 Ast 19 U/L 13-39 Egfr Non- 73.3 >60 Egfr 94.3 >60 7 Laboratory test finding 01/26/2016 Troponin-I (TnI) 0.00 ng/mL <0.03 8 CBC Auto Diff 01/26/2016 White Blood Count 8.3 10^3/uL 3.5-10.8 Red Blood Count 4.39 10^6/uL 4.0-5.4 Hemoglobin 14.3 g/dL 12.0-16.0 Hematocrit 43 % 35-47 Mean Corpuscular Volume 98 fL High 80-97 Mean Corpuscular Hemoglobin 33 pg High 27-31 Mean Corpuscular HGB Conc 33 g/dL 31-36 Red Cell Distribution Width 12 % 10.5-15 Platelet Count 161 10^3/uL 150-450 Mean Platelet Volume 10 um3 7.4-10.4 Abs Neutrophils 4.1 10^3/uL 1.5-7.7 Abs Lymphocytes 3.4 10^3/uL 1.0-4.8 Abs Monocytes 0.5 10^3/uL 0-0.8 Abs Eosinophils 0.3 10^3/uL 0-0.6 Abs Basophils 0.1 10^3/uL 0-0.2 Abs Nucleated RBC 0.01 10^3/uL Granulocyte % 49.5 % 38-83 Lymphocyte % 40.4 % 25-47 Monocyte % 6.4 % 1-9 Eosinophil % 3.1 % 0-6 Basophil % 0.6 % 0-2 Nucleated Red Blood Cells % 0.1 Laboratory test 01/26/2016 D Dimer Quantitative < 200 ng/mL Less Than 230 9 finding HIV 1/2 AB 12/04/2015 HIV 1 2 Antibody Nonreactive Nonreactive 10 Evaluation CBC Auto Diff 10/11/2015 White Blood Count 8.2 10^3/uL 3.5-10.8 Red Blood Count 4.35 10^6/uL 4.0-5.4 Hemoglobin 14.1 g/dL 12.0-16.0 Hematocrit 43 % 35-47 Mean Corpuscular Volume 98 fL High 80-97 Mean Corpuscular Hemoglobin 32 pg High 27-31 Mean Corpuscular HGB Conc 33 g/dL 31-36 Red Cell Distribution Width 12 % 10.5-15 Platelet Count 179 10^3/uL 150-450 Mean Platelet Volume 10 um3 7.4-10.4 Abs Neutrophils 4.0 10^3/uL 1.5-7.7 Abs Lymphocytes 3.4 10^3/uL 1.0-4.8 Abs Monocytes 0.5 10^3/uL 0-0.8 Abs Eosinophils 0.2 10^3/uL 0-0.6 Abs Basophils 0 10^3/uL 0-0.2 Abs Nucleated RBC 0.01 10^3/uL Granulocyte % 48.1 % 38-83 Lymphocyte % 41.7 % 25-47 Monocyte % 6.7 % 1-9 Eosinophil % 3.0 % 0-6 Basophil % 0.5 % 0-2 Nucleated Red Blood Cells % 0.1 Comp Metabolic Panel 10/11/2015 Sodium 137 mmol/L 133-145 Potassium 4.2 mmol/L 3.5-5.0 Chloride 106 mmol/L 101-111 Co2 Carbon Dioxide 25 mmol/L 22-32 Anion Gap 6 mmol/L 2-11 Glucose 96 mg/dL 70-100 Blood Urea Nitrogen 13 mg/dL 6-24 Creatinine 0.80 mg/dL 0.51-0.95 BUN/Creatinine Ratio 16.3 8-20 Calcium 9.2 mg/dL 8.6-10.3 Total Protein 6.9 g/dL 6.4-8.9 Albumin 4.3 g/dL 3.2-5.2 Globulin 2.6 g/dL 2-4 Albumin/Globulin Ratio 1.7 1-3 Total Bilirubin 0.30 mg/dL 0.2-1.0 Alkaline Phosphatase 48 U/L 34-104 Alt 28 U/L 7-52 Ast 22 U/L 13-39 Egfr Non- 77.6 >60 Egfr 99.8 >60 11 Laboratory test finding 10/11/2015 TSH (Thyroid Stim 2.37 ?IU/mL 0.34- 5.60 Horm) Hepatitis Acute Panel 10/11/2015 Hepatitis B Surface Nonreactive Nonreactive Antigen Hepatitis B Core IgM Nonreactive Nonreactive Hepatitis A AB IgM Nonreactive Nonreactive Hepatitis C Antibody Nonreactive Nonreactive Urinalysis Profile 10/11/2015 Urine Color Yellow Urine Appearance Cloudy Urine Specific Isabella 1.021 1.010-1.030 Urine pH 6.0 5-9 Urine Urobilinogen Negative Negative Urine Ketones Negative Negative Urine Protein Negative Negative Urine Leukocytes Negative Negative Urine Blood Negative Negative Urine Nitrite Negative Negative Urine Bilirubin Negative Negative Urine Glucose Negative Negative Hepatitis B Twyla AB Titer 05/31/2015 Hepatitis B Surface AB Reactive Nonreactive Hep B Surf AB Level 25.88 mIU/mL <12 12 Urinalysis Profile 10/25/2014 Urine Color April Urine Appearance Cloudy Urine Specific Isabella 1.028 1.010-1.030 Urine pH 6.0 5-9 Urine Urobilinogen Positive Negative Urine Ketones 1+ Negative Urine Protein 1+(30 mg/dL) Negative Urine Leukocytes Negative Negative Urine Blood Negative Negative Urine Nitrite Negative Negative Urine Bilirubin Negative Negative Urine Glucose Negative Negative Urine White Blood Cell Trace(0-5/hpf) Absent Urine Red Blood Cell 1+(3-5/hpf) Absent Urine Bacteria Absent Absent Urine Squamous Epithelial Cell Present Absent Urine Drug SCR ED 10/25/2014 Amphetamine Ur Screen None Detected None Detect & [facility] Barbiturates Urine Screen None Detected None Detect Benzodiazepine Urine Screen None Detected None Detect Urine Cannabinoids Screen None Detected None Detect Urine Cocaine Screen None Detected None Detect Urine Opiates Screen None Detected None Detect Urine Phencyclidine Screen None Detected None Detect 13 CBC Auto Diff 10/25/2014 White Blood Count 13.6 10^3/uL High 4.8-10.8 Red Blood Count 4.94 10^6/uL 4.0-5.4 Hemoglobin 16.1 g/dL High 12.0-16.0 Hematocrit 48 % High 35-47 Mean Corpuscular Volume 97 fL 80-97 Mean Corpuscular Hemoglobin 33 pg High 27-31 Mean Corpuscular HGB Conc 34 g/dL 31-36 Red Cell Distribution Width 12 % 10.5-15 Platelet Count 202 10^3/uL 150-450 Mean Platelet Volume 10 um3 7.4-10.4 Abs Neutrophils 8.2 10^3/uL High 1.5-7.7 Abs Lymphocytes 4.4 10^3/uL 1.0-4.8 Abs Monocytes 0.9 10^3/uL High 0-0.8 Abs Eosinophils 0.1 10^3/uL 0-0.6 Abs Basophils 0.1 10^3/uL 0-0.2 Abs Nucleated RBC 0.01 10^3/uL Granulocyte % 60.5 % 38-83 Lymphocyte % 32.2 % 25-47 Monocyte % 6.2 % 1-9 Eosinophil % 0.6 % 0-6 Basophil % 0.5 % 0-2 Nucleated Red Blood Cells % 0.1 Comp Metabolic Panel 10/25/2014 Sodium 136 mmol/L 133-145 Potassium 4.1 mmol/L 3.5-5.0 Chloride 105 mmol/L 101-111 Co2 Carbon Dioxide 20 mmol/L Low 22-32 Anion Gap 11 mmol/L 2-11 Glucose 90 mg/dL 70-100 Blood Urea Nitrogen 17 mg/dL 6-24 Creatinine 0.88 mg/dL 0.51-0.95 BUN/Creatinine Ratio 19.3 8-20 Calcium 10.6 mg/dL High 8.6-10.3 Total Protein 8.5 g/dL 6.4-8.9 Albumin 5.1 g/dL 3.2-5.2 Globulin 3.4 g/dL 2-4 Albumin/Globulin Ratio 1.5 1-3 Total Bilirubin 0.90 mg/dL 0.2-1.0 Alkaline Phosphatase 55 U/L 34-104 Alt 40 U/L 7-52 Ast 30 U/L 13-39 Egfr Non- 69.8 >60 Egfr 89.8 >60 14 Laboratory test finding 10/25/2014 Acetaminophen < 15 g/mL 15 Alcohol < 10 mg/dL <10 Salicylate < 2.50 mg/dL <30 TSH (Thyroid Stimulating Horm) 5.11 IU/mL 0.34-5.60 Serum Negative Negative 16 Stool For Blood 05/02/2014 Stool Occult Blood (SEE NOTE) 17 CBC Auto Diff 05/02/2014 White Blood Count 10.1 10^3/uL 4.8-10.8 Red Blood Count 4.47 10^6/uL 4.0-5.4 Hemoglobin 14.9 g/dL 12.0-16.0 Hematocrit 43 % 35-47 Mean Corpuscular Volume 96 fL 80-97 Mean Corpuscular Hemoglobin 33 pg High 27-31 Mean Corpuscular HGB Conc 35 g/dL 31-36 Red Cell Distribution Width 13 % 10.5-15 Platelet Count 211 10^3/uL 150-450 Mean Platelet Volume 9 um3 7.4-10.4 Abs Neutrophils 5.0 10^3/uL 1.5-7.7 Abs Lymphocytes 3.6 10^3/uL 1.0-4.8 Abs Monocytes 0.6 10^3/uL 0-0.8 Abs Eosinophils 0.7 10^3/uL High 0-0.6 Abs Basophils 0.1 10^3/uL 0-0.2 Abs Nucleated RBC 0.01 10^3/uL Granulocyte % 49.7 % 38-83 Lymphocyte % 35.9 % 25-47 Monocyte % 6.2 % 1-9 Eosinophil % 7.2 % High 0-6 Basophil % 1.0 % 0-2 Nucleated Red Blood Cells % 0.1 Laboratory test finding 05/02/2014 Lactic Acid 0.9 mmol/L 0.5-2.2 Comp Metabolic Panel 05/02/2014 Sodium 136 mmol/L 133-145 Potassium 3.8 mmol/L 3.7-5.6 Chloride 107 mmol/L 101-111 Co2 Carbon Dioxide 23 mmol/L 22-32 Anion Gap 6 mmol/L 2-11 Glucose 103 mg/dL High 70-100 Blood Urea Nitrogen 15 mg/dL 6-24 Creatinine 0.88 mg/dL 0.51-0.95 BUN/Creatinine Ratio 17.0 8-20 Calcium 9.7 mg/dL 8.6-10.3 Total Protein 7.9 g/dL 6.4-8.9 Albumin 4.6 g/dL 3.2-5.2 Globulin 3.3 g/dL 2-4 Albumin/Globulin Ratio 1.4 1-3 Total Bilirubin 0.30 mg/dL 0.2-1.0 Alkaline Phosphatase 57 U/L 34-104 Alt 33 U/L 7-52 Ast 25 U/L 13-39 Egfr Non- 69.8 >60 Egfr 89.8 >60 18 Laboratory test finding 05/02/2014 Magnesium 2.0 mg/dL 1.9-2.7 19 Amylase 18 U/L Low 29-103 Lipase 27 U/L 11.0-82.0 Creatine Kinase 128 U/L 10-223 C Reactive Protein 3.63 mg/L < 5.00 20 Laboratory test finding 02/09/2014 Alt 50 U/L 7-52 Ast 34 U/L 13-39 Laboratory test finding 01/18/2014 TSH (Thyroid Stimulating 2.26 IU/mL 0.34-5.60 Horm) Laboratory test finding 01/18/2014 B Type Natriuretic 26 pg/mL 21 Peptide CBC Auto Diff 01/18/2014 White Blood Count 8.0 10^3/uL 4.8-10.8 Red Blood Count 4.11 10^6/uL 4.0-5.4 Hemoglobin 13.5 g/dL 12.0-16.0 Hematocrit 39 % 35-47 Mean Corpuscular Volume 96 fL 80-97 Mean Corpuscular Hemoglobin 33 pg High 27-31 Mean Corpuscular HGB Conc 34 g/dL 31-36 Red Cell Distribution Width 13 % 10.5-15 Platelet Count 188 10^3/uL 150-450 Mean Platelet Volume 9 um3 7.4-10.4 Abs Neutrophils 3.8 10^3/uL 1.5-7.7 Abs Lymphocytes 3.4 10^3/uL 1.0-4.8 Abs Monocytes 0.5 10^3/uL 0-0.8 Abs Eosinophils 0.2 10^3/uL 0-0.6 Abs Basophils 0.1 10^3/uL 0-0.2 Abs Nucleated RBC 0.01 10^3/uL Granulocyte % 47.5 % 38-83 Lymphocyte % 42.2 % 25-47 Monocyte % 6.5 % 1-9 Eosinophil % 3.0 % 0-6 Basophil % 0.8 % 0-2 Nucleated Red Blood Cells % 0.1 Comp Metabolic Panel 01/18/2014 Sodium 139 mmol/L 133-145 Potassium 3.7 mmol/L 3.7-5.6 Chloride 108 mmol/L 101-111 Co2 Carbon Dioxide 26 mmol/L 22-32 Anion Gap 5 mmol/L 2-11 Glucose 75 mg/dL 70-100 Blood Urea Nitrogen 8 mg/dL 6-24 Creatinine 0.83 mg/dL 0.51-0.95 BUN/Creatinine Ratio 9.6 8-20 Calcium 9.4 mg/dL 8.6-10.3 Total Protein 7.6 g/dL 6.4-8.9 Albumin 4.4 g/dL 3.2-5.2 Globulin 3.2 g/dL 2-4 Albumin/Globulin Ratio 1.4 1-3 Total Bilirubin 0.40 mg/dL 0.2-1.0 Alkaline Phosphatase 54 U/L 34-104 Alt 59 U/L High 7-52 Ast 45 U/L High 13-39 Egfr Non- 75.0 >60 Egfr 96.5 >60 22 Urinalysis 01/18/2014 Urine Color Yellow Urine Appearance Clear Urine Specific Isabella 1.003 Low 1.010-1.030 Urine Esterase Negative Negative Urine Nitrate Negative Negative Urine Urobilinogen Negative E.U./dL Negative Urine Protein Negative mg/dL Negative Urine pH 7.0 5-9 Urine Blood 1+ Negative Urine Ketones Negative mg/dL Negative Urine Bilirubin Negative Negative Urine Glucose Negative mg/dL Negative Urine Culture And Sensitivities 01/18/2014 Urine Culture (SEE NOTE) 23 Urine Microscopic 01/18/2014 Urine WBC None Seen None Seen Urine RBC 1+ (<3 /hpf) None Seen Urine Epithelial Cells 1+ Squamous /hpf None Seen Bacteria Urine 1+ None Seen Ua Routine 01/18/2014 Ua Specific Isabella 1.005 Ua PH 5 Ua Color pale Ua Appera clear Ua WBC neg Ua Protein neg Ua Glucose neg Ua Ketones neg Ua Bilirubin neg Ua Urobilinogen normal Ua Nitrite neg Ua Occult Blood small Laboratory test 12/05/2013 Glucose Fingerstick 94 finding Laboratory test 12/05/2013 TSH (Thyroid 5.61 IU/mL High 0.34-5.60 24, 25 finding Stimulating Horm) Free T4 0.63 ng/mL 0.61-1.12 24, 26 Lipid Profile (Trig/Chol/HDL) 12/05/2013 Triglycerides 260 mg/dL 24, 27 Cholesterol 236 mg/dL 24, 28 HDL Cholesterol 31.1 mg/dL 24, 29 LDL Cholesterol 153 mg/dL 24, 30 Comp Metabolic Panel 12/05/2013 Sodium 137 mmol/L 133-145 24 Potassium 3.8 mmol/L 3.7-5.6 24 Chloride 106 mmol/L 101-111 24 Co2 Carbon Dioxide 23 mmol/L 22-32 24 Anion Gap 8 mmol/L 2-11 24 Glucose 80 mg/dL 70-100 24 Blood Urea Nitrogen 13 mg/dL 6-24 24 Creatinine 0.86 mg/dL 0.51-0.95 24 BUN/Creatinine Ratio 15.1 8-20 24 Calcium 9.5 mg/dL 8.6-10.3 24 Total Protein 7.3 g/dL 6.4-8.9 24 Albumin 4.6 g/dL 3.2-5.2 24 Globulin 2.7 g/dL 2-4 24 Albumin/Globulin Ratio 1.7 1-3 24 Total Bilirubin 0.40 mg/dL 0.2-1.0 24 Alkaline Phosphatase 55 U/L 34-104 24 Alt 55 U/L High 7-52 24 Ast 39 U/L 13-39 24 Egfr Non- 72.0 >60 24 Egfr 92.6 >60 24, 31 Laboratory test 07/18/2013 Urine Negative Negative 32 finding Laboratory test 04/03/2013 D Dimer Quantitative < 200 ng/mL Less Than 230 33 finding Vitamin B12 245 pg/mL 180-914 TSH (Thyroid Stimulating Horm) 1.91 miu/mL 0.34-5.60 Protime W/ Inr 03/22/2013 Prothrombin Time 24.7 Inr 2.1 Laboratory test finding 03/14/2013 Inr 5.29 High 0.87-0.97 Laboratory test finding 02/28/2013 Inr 1.98 High 0.87-0.97 Laboratory test finding 02/21/2013 Inr 3.85 High 0.87-0.97 Inr/Protime 02/06/2013 Inr 3.09 High 0.87-0.97 Laboratory test finding 01/05/2013 Inr 2.86 High 0.87-0.97 Laboratory test finding 12/23/2012 Inr 2.97 High 0.87-0.97 Laboratory test finding 12/12/2012 Inr 2.72 High 0.87-0.97 Laboratory test finding 12/05/2012 Inr 1.25 High 0.87-0.97 34 Inr/Protime 11/30/2012 Inr 5.41 High 0.87-0.97 35 Protime W/ Inr 11/30/2012 Prothrombin Time 75.8 Inr 6.3 Protime W/ Inr 11/16/2012 Prothrombin Time 42.3 Inr 3.5 Laboratory test finding 11/03/2012 Inr 1.20 High 0.87-0.97 36 Laboratory test finding 10/31/2012 Inr 1.12 High 0.87-0.97 37 Lipid Profile (Trig/Chol/HDL) 10/28/2012 Triglycerides 170 mg/dL 40-200 Cholesterol 215 mg/dL High Less than 200 HDL Cholesterol 42 mg/dL 40-60 38 Cholesterol/HDL Ratio 5.1 Average High 1-4.44 LDL Cholesterol 139.0 mg/dL High Less Than 100 39 Inr/Protime 10/27/2012 Inr 1.10 High 0.87-0.97 40 Mumps Igg 10/19/2012 Mumps Virus IgG Antibody Positive 41 Mumps IgG Antibody Index 2.61 0.00-0.89 42 Laboratory test finding 10/19/2012 Rubella IgG Antibody Positive 43 Mumps Igg 10/19/2012 Mumps Virus IgG Antibody Positive 44 Mumps IgG Antibody Index 2.61 0.00-0.89 45 Mumps Virus IgG Antibody Positive 46 Mumps IgG Antibody Index 2.61 0.00-0.89 47 Laboratory test finding 10/19/2012 Rubeola (Measles) IgG Antibody Negative 48 Laboratory test finding 10/19/2012 Rubella IgG Antibody Positive 49 Rubeola (Measles) IgG Antibody Negative 50 Hepatitis B Core Ab IgM MML Negative Negative 51 Laboratory test finding 09/23/2012 Inr 2.08 High 0.82-1.17 52 Laboratory test finding 09/13/2012 Lipase 34 U/L 22-51 Stool For Blood 09/13/2012 Stool Occult Blood (SEE NOTE) 53 Comp Metabolic Panel 09/13/2012 Sodium 136 mmol/L 133-145 Potassium 4.6 mmol/L 3.5-5.0 Chloride 108 mmol/L 101-111 Co2 Carbon Dioxide 24.0 mmol/L 22-32 Anion Gap 4.0 mmol/L 2-11 Glucose 107 mg/dL High 70-100 Blood Urea Nitrogen 11 mg/dL 6-24 Creatinine 0.70 mg/dL 0.50-1.40 BUN/Creatinine Ratio 15.7 8-20 Calcium 9.2 mg/dL 8.1-9.9 Total Protein 7.9 g/dL 6.2-8.1 Albumin 3.9 g/dL 3.6-5.4 Globulin 4.0 g/dL 2-4 Albumin/Globulin Ratio 1.0 1-3 Total Bilirubin 1.0 mg/dL 0.4-1.5 Alkaline Phosphatase 55 U/L 30-110 Alt 35 U/L 14-54 Ast 30 U/L 12-42 Egfr Non- 91.8 >60 Egfr 118.0 >60 54 CBC Auto Diff 09/13/2012 White Blood Count 10.4 10^3/uL 4.8-10.8 Red Blood Count 4.25 10^6/uL 4.0-5.4 Hemoglobin 14.0 g/dL 12.0-16.0 Hematocrit 41 % 35-47 Mean Corpuscular Volume 97 fL 80-97 Mean Corpuscular Hemoglobin 33 pg High 27-31 Mean Corpuscular HGB Conc 34 g/dL 31-36 Red Cell Distribution Width 13 % 10.5-15 Platelet Count 150 10^3/uL 150-450 Mean Platelet Volume 9 um3 7.4-10.4 Abs Neutrophils 5.7 10^3/uL 1.5-7.7 Abs Lymphocytes 3.7 10^3/uL 1.0-4.8 Abs Monocytes 0.8 10^3/uL 0-0.8 Abs Eosinophils 0.2 10^3/uL 0-0.6 Abs Basophils 0.1 10^3/uL 0-0.2 Abs Nucleated RBC 0 10^3/uL Granulocyte % 54.4 % 38-83 Lymphocyte % 35.2 % 25-47 Monocyte % 7.7 % 1-9 Eosinophil % 2.2 % 0-6 Basophil % 0.5 % 0-2 Nucleated Red Blood Cells % 0 Laboratory test finding 09/13/2012 Inr 1.82 High 0.82-1.17 55 Laboratory test finding 09/09/2012 Inr 3.23 High 0.82-1.17 56 Laboratory test finding 08/12/2012 Inr 2.38 High 0.82-1.17 57 Laboratory test finding 07/15/2012 Inr 2.37 High 0.82-1.17 58 Protime W/ Inr 06/17/2012 Prothrombin Time 31.4 Inr 2.6 Protime 06/08/2012 Inr 1.98 High 0.82-1.17 59 Laboratory test finding 05/05/2012 PTT (Aptt) 36.9 SEC 25.1-38.5 Comp Metabolic Panel 05/05/2012 Sodium 137 mmol/L 135-145 Potassium 3.6 mmol/L 3.5-5.0 Chloride 107 mmol/L 101-111 Co2 (Carbon Dioxide) 25.0 mmol/L 22-32 Anion Gap 5.0 mmol/L 2-11 60 Glucose 93 mg/dL 70-100 BUN 16 mg/dL 6-24 Creatinine 0.8 mg/dL 0.50-1.40 One Over Creatinine 1.25 BUN/Creatinine Ratio 20.0 8-20 Calcium 9.5 mg/dL 8.1-9.9 Total Protein 8.1 GM/DL 6.2-8.1 Albumin 4.3 GM/DL 3.6-5.4 Globulin 3.8 GM/DL 2-4 Albumin/Globulin Ratio 1.1 1-3 Bilirubin Total 0.5 mg/dL 0.4-1.5 61 Alkaline Phosphatase 61 U/L 30-110 Alt (SGPT) 31 U/L 14-54 Ast (Sgot) 27 U/L 12-42 eGFR Non- 78.7 > 60 eGFR 101.2 > 60 62 CKMB 05/05/2012 CKMB In NG/ML 1.1 NG/ML 0.3-4.0 % CKMB 0 %MB 0-9 63 Laboratory test finding 05/05/2012 Troponin-I 0 NG/ML 0-0.06 64 CBC No Diff 05/05/2012 White Blood Count 7.3 CUMM 4.8-10.8 Red Cell Count 4.13 CUMM Low 4.2-5.4 Hemoglobin 13.9 g/dL 12.0-16.0 Hematocrit 40 % 35-47 Mean Corpuscular Volume 97 um3 79-97 Mean Corpuscular Hemoglob 34 pg High 27-31 Mean Corpuscular HGB Cone 35 g/dL 32-36 Redcell Distribution WDTH 13 % 10.5-15 Platelet Count 156 CUMM 150-450 Mean Platelet Volume 9.8 um3 7.4-10.4 International Normalized Ratio 05/05/2012 Inr 2.26 High 0.88-1.13 65 Protime 27.8 SEC High 10.3-13.5 66 Vad 05/04/2012 Vad Final Nonreactive Nonreactive 67 Comp Metabolic Panel 05/04/2012 Sodium 140 mmol/L 135-145 Potassium 3.8 mmol/L 3.5-5.0 Chloride 108 mmol/L 101-111 Co2 (Carbon Dioxide) 26.0 mmol/L 22-32 Anion Gap 6.0 mmol/L 2-11 68 Glucose 83 mg/dL 70-100 BUN 13 mg/dL 6-24 Creatinine 0.9 mg/dL 0.50-1.40 One Over Creatinine 1.11 BUN/Creatinine Ratio 14.4 8-20 Calcium 9.5 mg/dL 8.1-9.9 Total Protein 7.1 GM/DL 6.2-8.1 Albumin 4.2 GM/DL 3.6-5.4 Globulin 2.9 GM/DL 2-4 Albumin/Globulin Ratio 1.4 1-3 Bilirubin Total 0.6 mg/dL 0.4-1.5 69 Alkaline Phosphatase 58 U/L 30-110 Alt (SGPT) 32 U/L 14-54 Ast (Sgot) 27 U/L 12-42 eGFR Non- 68.7 > 60 eGFR 88.3 > 60 70 Comp Metabolic Panel 04/28/2012 Sodium 138 mmol/L 135-145 Potassium 4.1 mmol/L 3.5-5.0 Chloride 107 mmol/L 101-111 Co2 (Carbon Dioxide) 24.0 mmol/L 22-32 Anion Gap 7.0 mmol/L 2-11 71 Glucose 87 mg/dL 70-100 BUN 14 mg/dL 6-24 Creatinine 0.9 mg/dL 0.50-1.40 One Over Creatinine 1.11 BUN/Creatinine Ratio 15.6 8-20 Calcium 9.7 mg/dL 8.1-9.9 Total Protein 7.9 GM/DL 6.2-8.1 Albumin 4.2 GM/DL 3.6-5.4 Globulin 3.7 GM/DL 2-4 Albumin/Globulin Ratio 1.1 1-3 Bilirubin Total 0.8 mg/dL 0.4-1.5 72 Alkaline Phosphatase 68 U/L 30-110 Alt (SGPT) 36 U/L 14-54 Ast (Sgot) 32 U/L 12-42 eGFR Non- 68.7 > 60 eGFR 88.3 > 60 73 Lipid Profile (Trig/Chol/HDL) 04/28/2012 Triglyceride 303 mg/dL High 40- 200 Cholesterol 257 mg/dL High Less Than 200 74 High Density Lipoprotein 32 mg/dL Low 40-60 75 Cholesterol/HDL Ratio 8.03 AVERAGE High 1-4.44 Low Density Lipoprotein 164 mg/dL High Less Than 100 76 Vitamin D 1,25 And 04/28/2012 Vitamin D, 1,25 Dihydroxy 42 pg/mL 18-78 77 Vitamin D,2 Vitamin D, 25 Hydroxy 04/28/2012 25-Hydroxy Vitamin D2 <4.0 ng/mL () 25-Hydroxy Vitamin D3 44 ng/mL () 25-Hydroxy Vitamin D Total 44 ng/mL () 78 Protime 04/28/2012 Inr 1.98 High 0.88-1.13 79 Protime 24.3 SEC High 10.3-13.5 80 CBC Auto Diff 04/28/2012 White Blood Count 6.0 CUMM 4.8-10.8 Red Cell Count 4.32 CUMM 4.2-5.4 Hemoglobin 14.7 g/dL 12.0-16.0 Hematocrit 42 % 35-47 Mean Corpuscular Volume 97 um3 79-97 Mean Corpuscular Hemoglob 34 pg High 27-31 Mean Corpuscular HGB Cone 35 g/dL 32-36 Redcell Distribution WDTH 13 % 10.5-15 Platelet Count 177 CUMM 150-450 Mean Platelet Volume 9.7 um3 7.4-10.4 Gran % 44.1 % 38-83 Lymph % 45.9 % High 20-45 Mononuclear % 7.1 % 1-9 Eosinophil % 2.5 % 0-6 Basophil % 0.4 % 0-2 Abs Lymphs 2.7 1.0-4.8 Abs Mononuclear 0.4 0-0.8 Absolute Neutrophil Count 2.6 1.5-7.7 Abs Eosinophils 0.2 0-0.6 Abs Basophils 0 0-0.2 Laboratory test finding 04/28/2012 TSH 1.61 MIU/ML 0.34-5.60 Thyroxine Free 0.63 ng/dL 0.61-1.24 1 Desirable <150 Borderline high 150-199 High 200-499 Very High >500 2 Desirable <200 Borderline high 200-239 High >239 3 Low <40 Desirable: 40-60 High: >60 4 Desirable: <100 mg/dL Near Optimal: 100-129 mg/dL Borderline High: 130-159 mg/dL High: 160-189 mg/dL Very High: >189 mg/dL 5 Corporate Affairs Manager: [id number] SEE RESULT BELOW Name: CAIT COLLINS Kaela : [address]: Bryce Armas MD Acct: [id number] Unit: [id number] AGE: 46 Location: ED Re12/18/16 SEX: F Status: REG ER SPEC: [id number] JAMES: 12/18/[address]: Kamila GUZMAN REQ: [id number] RECD: 12/18/16 STATUS: JAMARCUS JACOBS DR: Arthur Armas MD _ SOURCE: NASAL SPDESC: ORDERED: Flu A B Request Procedure Result Reported Site Rapid Influenza A B Request Final 12/18/16- 1124 ML Specimen received for Influenza A/B Molecular testing * ML - MAIN LAB ([facility]) . END OF REPORT * ML=Testing performed at Main Lab DEPARTMENT OF PATHOLOGY, [address] [place] [address] Ryan Gaytan M.D. Director [facility] # [id number] 7 Because ethnic data is not always readily available, this report includes an eGFR for both -Americans and non- Americans. The National Kidney Disease Education Program (NKDEP) does not endorse the use of the MDRD equation for patients that are not between the ages of 18 and 70, are , have extremes of body size, muscle mass, or nutritional status, or are non- or non-. According to the National Kidney Foundation, irrespective of diagnosis, the stage of the disease is based on the level of kidney function: Stage Description GFR(mL/min/1.73 m(2)) 1 Kidney damage with normal or decreased GFR 90 2 Kidney damage with mild decrease in GFR 60-89 3 Moderate decrease in GFR 30-59 4 Severe decrease in GFR 15-29 5 Kidney failure <15 (or dialysis) 8 Reference Range and Interpretation: TnI (ng/mL) Interpretation Less Than 0.03 ng/mL Not supportive of diagnosis of [place] 0.03 - 0.50 ng/mL Indeterminate: suggest serial studies if clinically indicated. Greater than 0.5 ng/mL Consistent with diagnosis of [place] 9 Please note: The following may produce a false positive D Dimer test: - Rheumatoid factor greater than 60 IU/ml - Plasma hemoglobin greater than 0.05 gm/dl - Bilirubin greater than 50 mg/dl - Lipids greater than 1000 mg/dl - FDP greater than 20 ug/ml 10 It is recognized that currently available assays for the detection of antibodies to HIV-1 and/or HIV-2 may not detect all infected individuals. HIV antibodies may be undetectable in some stages of the infection and in some clinical conditions. The performance of this assay has not been established for populations of infants or children. Assayed by Chemiluminescence Microparticle Immunoassay on the Siemens Advia Centaur CP. Values obtained with different methods or kits cannot be used interchangeably.The diagnostic specificity of the ADVIA Centaur 1/O/2 Enhanced assay in the low risk population was 99.90% (6052/6058) with a 95% confidence interval of 99.78 to 99.96%. 11 Because ethnic data is not always readily available, this report includes an eGFR for both -Americans and non- Americans. The National Kidney Disease Education Program (NKDEP) does not endorse the use of the MDRD equation for patients that are not between the ages of 18 and 70, are , have extremes of body size, muscle mass, or nutritional status, or are non- or non-. According to the National Kidney Foundation, irrespective of diagnosis, the stage of the disease is based on the level of kidney function: Stage Description GFR(mL/min/1.73 m(2)) 1 Kidney damage with normal or decreased GFR 90 2 Kidney damage with mild decrease in GFR 60-89 3 Moderate decrease in GFR 30-59 4 Severe decrease in GFR 15-29 5 Kidney failure <15 (or dialysis) 12 This assay does not differentiate between reactivity due to a vaccine-induced immune response or an immune response induced by infection with HBV. 13 The urine specimen was tested at the listed cutoffs: Drug class test level (ng/mL) Amphetamines 500 Barbituates 200 Benzodiazepine metabolites 200 Cocaine metabolites 150 Cannabinoids 50 Opiates 300 Pcp 25 This is a screening procedure. Positive results are not confirmed. Specimen was received without chain of custody. Results should be used for medical purposes only. 14 Because ethnic data is not always readily available, this report includes an eGFR for both -Americans and non- Americans. The National Kidney Disease Education Program (NKDEP) does not endorse the use of the MDRD equation for patients that are not between the ages of 18 and 70, are , have extremes of body size, muscle mass, or nutritional status, or are non- or non-. According to the National Kidney Foundation, irrespective of diagnosis, the stage of the disease is based on the level of kidney function: Stage Description GFR(mL/min/1.73 m(2)) 1 Kidney damage with normal or decreased GFR 90 2 Kidney damage with mild decrease in GFR 60-89 3 Moderate decrease in GFR 30-59 4 Severe decrease in GFR 15-29 5 Kidney failure <15 (or dialysis) 15 Therapeutic concentration: <50 ug/mL Toxic concentration: >120 ug/mL 16 This test detects intact HCG only and is indicated for the early detection of . 17 RUN DATE: 05/02/14 [facility] LAB LIVE PAGE 1 RUN TIME: [address] [place] [address] Specimen Inquiry Name: CAIT COLLINS : [address]: Jose Grace DO Acct: [id number] Unit: [id number] AGE: 44 Location: ED Re05/02/14 SEX: F Status: REG ER SPEC: [id number] JAMES: 05/02/14-[address] [facility] [address]: Jose Grace DO REQ: [id number] RECD: 05/02/14 STATUS: JAMARCUS JACOBS DR: Arthur Rockwell MD _ SOURCE: STOOL SPDESC: ORDERED: Hemoccult Procedure Result Verified Site Stool Occult Blood Final 05/02/14- 243 ML Stool Occult Blood Negative END OF REPORT * ML=Testing performed at Main Lab DEPARTMENT OF PATHOLOGY, [address] [place] [address] Ryan Gaytan M.D. Director [facility] # [id number] 18 Because ethnic data is not always readily available, this report includes an eGFR for both -Americans and non- Americans. The National Kidney Disease Education Program (NKDEP) does not endorse the use of the MDRD equation for patients that are not between the ages of 18 and 70, are , have extremes of body size, muscle mass, or nutritional status, or are non- or non-. According to the National Kidney Foundation, irrespective of diagnosis, the stage of the disease is based on the level of kidney function: Stage Description GFR(mL/min/1.73 m(2)) 1 Kidney damage with normal or decreased GFR 90 2 Kidney damage with mild decrease in GFR 60-89 3 Moderate decrease in GFR 30-59 4 Severe decrease in GFR 15-29 5 Kidney failure <15 (or dialysis) 19 [MG] affected by ICTERUS 20 Acute inflammation: >10.00 21 >100 to <200 pg/mL: likely compensated congestive heart failure (CHF) 200 to 400 pg/mL: likely moderate CHF >400 pg/mL: likely moderate to severe CHF [facility] 22 Because ethnic data is not always readily available, this report includes an eGFR for both -Americans and non- Americans. The National Kidney Disease Education Program (NKDEP) does not endorse the use of the MDRD equation for patients that are not between the ages of 18 and 70, are , have extremes of body size, muscle mass, or nutritional status, or are non- or non-. According to the National Kidney Foundation, irrespective of diagnosis, the stage of the disease is based on the level of kidney function: Stage Description GFR(mL/min/1.73 m(2)) 1 Kidney damage with normal or decreased GFR 90 2 Kidney damage with mild decrease in GFR 60-89 3 Moderate decrease in GFR 30-59 4 Severe decrease in GFR 15-29 5 Kidney failure <15 (or dialysis) 23 RUN DATE: 01/20/14 [facility] LAB LIVE PAGE 1 RUN TIME: [address] [place] [address] Specimen Inquiry Name: CAIT COLLINS : [address]: Yarelis Majano WIRE ANNEALER Acct: [id number] Unit: [id number] AGE: 43 Location: [facility] Re01/18/14 SEX: F Status: REG REF SPEC: [id number] JAMES: 01/18/14-[address]: Yarelis Majano NP REQ: [id number] RECD: 01/18/14 STATUS: COMP _ SOURCE: URINE SPDESC: ORDERED: Urine Culture QUERIES: Medent Number [id number] Procedure Result Verified Site Urine Culture Final 01/20/14- 1011 ML No Growth Day 2 (<1,000 CFU/mL) END OF REPORT * ML=Testing performed at Main Lab DEPARTMENT OF PATHOLOGY, [address] [place] [address] Ryan Gaytan M.D. Director [facility] # [id number] FASTING 12 HOUR 25 FASTING 12 HOUR 26 FASTING 12 HOUR 27 Desirable <150 Borderline high 150-199 High 200-499 Very High >500 28 Desirable <200 Borderline high 200-239 High >239 29 Low <40 Desirable: 40-60 High: >60 30 Desirable <100 Near Optimal 100-129 Borderline high 130-159 High 160-189 Very High >189 31 Because ethnic data is not always readily available, this report includes an eGFR for both -Americans and non- Americans. The National Kidney Disease Education Program (NKDEP) does not endorse the use of the MDRD equation for patients that are not between the ages of 18 and 70, are , have extremes of body size, muscle mass, or nutritional status, or are non- or non-. According to the National Kidney Foundation, irrespective of diagnosis, the stage of the disease is based on the level of kidney function: Stage Description GFR(mL/min/1.73 m(2)) 1 Kidney damage with normal or decreased GFR 90 2 Kidney damage with mild decrease in GFR 60-89 3 Moderate decrease in GFR 30-59 4 Severe decrease in GFR 15-29 5 Kidney failure <15 (or dialysis) 32 If is still suspected, please repeat test after 48 to 72 hours. This test detects intact HCG only and is indicated for the early detection of . 33 Please note: The following may produce a false positive D Dimer test: - Rheumatoid factor greater than 60 IU/ml - Plasma hemoglobin greater than 0.05 gm/dl - Bilirubin greater than 50 mg/dl - Lipids greater than 1000 mg/dl - FDP greater than 20 ug/ml 34 Please note the change in INR reference range effective 12. The INR(International Normalized Ratio) was adopted by the World Health Organization (WHO) in 1983 as a standardized system of reporting PT (Prothrombin Time). The Centers for Disease Control (CDC) states that reporting of PT results in INR only is the preferred method. Recommended INR for Patients on Oral Anticoagulants Prophylaxis 2.0 - 3.0 Treatment of thrombosis 2.0 - 3.0 Prevention of embolism 2.0 - 3.0 Prevention of embolism from prosthetic heart valves 2.5 - 3.5 35 Please note the change in INR reference range effective 12. The INR(International Normalized Ratio) was adopted by the World Health Organization (WHO) in 1982 as a standardized system of reporting PT (Prothrombin Time). The Centers for Disease Control (CDC) states that reporting of PT results in INR only is the preferred method. Recommended INR for Patients on Oral Anticoagulants Prophylaxis 2.0 - 3.0 Treatment of thrombosis 2.0 - 3.0 Prevention of embolism 2.0 - 3.0 Prevention of embolism from prosthetic heart valves 2.5 - 3.5 36 Please note the change in INR reference range effective 12. The INR(International Normalized Ratio) was adopted by the World Health Organization (WHO) in 1982 as a standardized system of reporting PT (Prothrombin Time). The Centers for Disease Control (CDC) states that reporting of PT results in INR only is the preferred method. Recommended INR for Patients on Oral Anticoagulants Prophylaxis 2.0 - 3.0 Treatment of thrombosis 2.0 - 3.0 Prevention of embolism 2.0 - 3.0 Prevention of embolism from prosthetic heart valves 2.5 - 3.5 37 Please note the change in INR reference range effective 12. The INR(International Normalized Ratio) was adopted by the World Health Organization (WHO) in 1982 as a standardized system of reporting PT (Prothrombin Time). The Centers for Disease Control (CDC) states that reporting of PT results in INR only is the preferred method. Recommended INR for Patients on Oral Anticoagulants Prophylaxis 2.0 - 3.0 Treatment of thrombosis 2.0 - 3.0 Prevention of embolism 2.0 - 3.0 Prevention of embolism from prosthetic heart valves 2.5 - 3.5 38 HDL Interpretation: Undesirable: High Risk: Less than 40 MG/DL Desirable: Low Risk: Greater than 60 MG/DL 39 LDL Interpretation: Low Risk Optimal Level: LDL Less than 100 MG/DL Near or Above Optimal: LDL 100-129 MG/DL Borderline High Risk: LDL 130-159 MG/DL High Risk: LDL 160-189 MG/DL Very High Risk: LDL Greater than 189 MG/DL 40 Please note the change in INR reference range effective 12. The INR(International Normalized Ratio) was adopted by the World Health Organization (WHO) in 1983 as a standardized system of reporting PT (Prothrombin Time). The Centers for Disease Control (CDC) states that reporting of PT results in INR only is the preferred method. Recommended INR for Patients on Oral Anticoagulants Prophylaxis 2.0 - 3.0 Treatment of thrombosis 2.0 - 3.0 Prevention of embolism 2.0 - 3.0 Prevention of embolism from prosthetic heart valves 2.5 - 3.5 41 Results suggest response to immunization or prior exposure to the virus. -- REFERENCE VALUE -- Negative 42 Test Performed by: [place] [address] Neonatal Social Worker: Kishan Fritz III, M.D. 43 -- REFERENCE VALUE -- Negative Test Performed by: [place] [address] Neonatal Social Worker: Kishan Fritz III, M.D. 44 Results suggest response to immunization or prior exposure to the virus. -- REFERENCE VALUE -- Negative 45 Test Performed by: [place] [address] Neonatal Social Worker: Kishan Fritz III, M.D. 46 Results suggest response to immunization or prior exposure to the virus. -- REFERENCE VALUE -- Negative 47 Test Performed by: [place] [address] Neonatal Social Worker: Kishan Fritz III, M.D. 48 -- REFERENCE VALUE -- Negative Test Performed by: [place] [address] Neonatal Social Worker: Kishan Fritz III, M.D. 49 -- REFERENCE VALUE -- Negative Test Performed by: [place] [address] Neonatal Social Worker: Kishan Fritz III, M.D. 50 -- REFERENCE VALUE -- Negative Test Performed by: [place] [address] Neonatal Social Worker: Kishan Fritz III, M.D. 51 Test Performed by: [place] [id number] Neonatal Social Worker: Kishan Fritz III, M.D. 52 The INR(International Normalized Ratio) was adopted by the World Health Organization (WHO) in 1982 as a standardized system of reporting PT (Prothrombin Time). The Centers for Disease Control (CDC) states that reporting of PT results in INR only is the preferred method. Recommended INR for Patients on Oral Anticoagulants Prophylaxis 2.0 - 3.0 Treatment of thrombosis 2.0 - 3.0 Prevention of embolism 2.0 - 3.0 Prevention of embolism from prosthetic heart valves 2.5 - 3.5 53 RUN DATE: 09/13/12 [facility] LAB LIVE PAGE 1 RUN TIME: [address] [place] [id number] Specimen Inquiry Name: CAIT COLLINS Kaela : [address]: Sahara Bearden DO Acct: [id number] Unit: [id number] AGE: 42 Location: ED Re09/13/12 SEX: F Status: REG ER SPEC: [id number] JAMES: 09/13/[address]: Sahara Bearden DO REQ: [id number] RECD: 09/13/12 STATUS: JAMARCUS JACOBS DR: Moiz NICOLAS,Arthur Resendiz _ SOURCE: STOOL SPDESC: ORDERED: Hemoccult Procedure Result Verified Site Stool Occult Blood Final 09/13/12- 2220 ML Stool Occult Blood Negative END OF REPORT * ML=Testing performed at Main Lab DEPARTMENT OF PATHOLOGY, [address] [place] [address] Ryan Gaytan M.D. Director [facility] #[id number] 54 Because ethnic data is not always readily available, this report includes an eGFR for both -Americans and non- Americans. The National Kidney Disease Education Program (NKDEP) does not endorse the use of the MDRD equation for patients that are not between the ages of 18 and 70, are , have extremes of body size, muscle mass, or nutritional status, or are non- or non-. According to the National Kidney Foundation, irrespective of diagnosis, the stage of the disease is based on the level of kidney function: Stage Description GFR(mL/min/1.73 m(2)) 1 Kidney damage with normal or decreased GFR 90 2 Kidney damage with mild decrease in GFR 60-89 3 Moderate decrease in GFR 30-59 4 Severe decrease in GFR 15-29 5 Kidney failure <15 (or dialysis) 55 The INR(International Normalized Ratio) was adopted by the World Health Organization (WHO) in 1982 as a standardized system of reporting PT (Prothrombin Time). The Centers for Disease Control (CDC) states that reporting of PT results in INR only is the preferred method. Recommended INR for Patients on Oral Anticoagulants Prophylaxis 2.0 - 3.0 Treatment of thrombosis 2.0 - 3.0 Prevention of embolism 2.0 - 3.0 Prevention of embolism from prosthetic heart valves 2.5 - 3.5 56 The INR(International Normalized Ratio) was adopted by the World Health Organization (WHO) in 1983 as a standardized system of reporting PT (Prothrombin Time). The Centers for Disease Control (CDC) states that reporting of PT results in INR only is the preferred method. Recommended INR for Patients on Oral Anticoagulants Prophylaxis 2.0 - 3.0 Treatment of thrombosis 2.0 - 3.0 Prevention of embolism 2.0 - 3.0 Prevention of embolism from prosthetic heart valves 2.5 - 3.5 57 The INR(International Normalized Ratio) was adopted by the World Health Organization (WHO) in 1983 as a standardized system of reporting PT (Prothrombin Time). The Centers for Disease Control (CDC) states that reporting of PT results in INR only is the preferred method. Recommended INR for Patients on Oral Anticoagulants Prophylaxis 2.0 - 3.0 Treatment of thrombosis 2.0 - 3.0 Prevention of embolism 2.0 - 3.0 Prevention of embolism from prosthetic heart valves 2.5 - 3.5 58 Effective June 06, 2012, in conjunction with the upgrade of the hospital information system, [facility] will release the International Normalized Ratio (INR) only. Patient reports will no longer contain prothrombin time (PT) results in seconds. This allows for consistency in patient evaluation and treatment. The INR was adopted by the World Health Organization (WHO) in 1983 as a standardized system of reporting PT. The Centers for Disease Control (CDC) states that reporting of PT results in INR only is the preferred method. Recommended INR for Patients on Oral Anticoagulants Prophylaxis 2.0 - 3.0 Treatment of thrombosis 2.0 - 3.0 Prevention of embolism 2.0 - 3.0 Prevention of embolism from prosthetic heart valves 2.5 - 3.5 59 Recommended INR for Patients on Oral Anticoagulants Prophylaxis 2.0 - 3.0 Treatment of thrombosis 2.0 - 3.0 Prevention of embolism 2.0 - 3.0 Prevention of embolism from prosthetic heart valves 2.5 - 3.5 60 Anion gap measurement may be of limited value in the presence of any alkalosis, especially in a combined acid base disorder. . 61 A metabolite of Naproxen, O-desmethylnaproxen, has been shown to interfere with the Jendrassik-Mita method for measuring total bilirubin. Samples from patients who have taken Naproxen have shown spurious elevation in total bilirubin levels. 62 Because ethnic data is not always readily available, this report includes an eGFR for both -Americans and non- Americans. The National Kidney Disease Education Program (NKDEP) does not endorse the use of the MDRD equation for patients that are not between the ages of 18 and 70, are , have extremes of body size, muscle mass, or nutritional status, or are non- or non-. According to the National Kidney Foundation, irrespective of diagnosis, the stage of the disease is based on the level of kidney function: Stage Description GFR(mL/min/1.73 m(2)) 1 Kidney damage with normal or decreased GFR 90 2 Kidney damage with mild decrease in GFR 60-89 3 Moderate decrease in GFR 30-59 4 Severe decrease in GFR 15-29 5 Kidney failure <15 (or dialysis) 63 INTERPRETATION %CK-MB < 5% NOT SUPPORTIVE OF DIAGNOSIS OF KS 5 - <10% INDETERMINATE; SUGGEST SERIAL STUDIES IF CLINICALLY INDICATED 10% OR > CONSISTENT WITH DIAGNOSIS OF KS . 64 New Reference Range and Interpretation effective 06/09/2002 TnI (ng/ml) INTERPRETATION Less Than 0.06 ng/mL NOT SUPPORTIVE OF DIAGNOSIS OF KS 0.06 - 0.50 ng/ml INDETERMINATE: SUGGEST SERIAL STUDIES IF CLINICALLY INDICATED. Greater than 0.5 ng/mL CONSISTENT WITH DIAGNOSIS OF KS . 65 Recommended INR for Patients on Oral Anticoagulants Prophylaxis 2.0 - 3.0 Treatment of thrombosis 2.0 - 3.0 Prevention of embolism 2.0 - 3.0 Prevention of embolism from prosthetic heart valves 2.5 - 3.5 66 DIAGNOSIS,TREATMENT,AND THERAPY MUST BE BASED ON THE INR VALUE ALONE. 67 It is recognized that currently available assays for the detection of antibodies to HIV-1 and/or HIV-2 may not detect all infected individuals. HIV antibodies may be undetectable in some stages of the infection and in some clinical conditions. The performance of this assay has not been established for populations of infants or children. Assayed by Chemiluminescence Microparticle Immunoassay on the Aspen Advia Centaur CP. Values obtained with different methods or kits cannot be used interchangeably.The diagnostic specificity of the ADVIA Centaur 1/O/2 Enhanced assay in the low risk population was 99.90% (6052/6058) with a 95% confidence interval of 99.78 to 99.96%. 68 Anion gap measurement may be of limited value in the presence of any alkalosis, especially in a combined acid base disorder. . 69 A metabolite of Naproxen, O-desmethylnaproxen, has been shown to interfere with the Jendrassik-[place] method for measuring total bilirubin. Samples from patients who have taken Naproxen have shown spurious elevation in total bilirubin levels. 70 Because ethnic data is not always readily available, this report includes an eGFR for both -Americans and non- Americans. The National Kidney Disease Education Program (NKDEP) does not endorse the use of the MDRD equation for patients that are not between the ages of 18 and 70, are , have extremes of body size, muscle mass, or nutritional status, or are non- or non-. According to the National Kidney Foundation, irrespective of diagnosis, the stage of the disease is based on the level of kidney function: Stage Description GFR(mL/min/1.73 m(2)) 1 Kidney damage with normal or decreased GFR 90 2 Kidney damage with mild decrease in GFR 60-89 3 Moderate decrease in GFR 30-59 4 Severe decrease in GFR 15-29 5 Kidney failure <15 (or dialysis) 71 Anion gap measurement may be of limited value in the presence of any alkalosis, especially in a combined acid base disorder. . 72 A metabolite of Naproxen, O-desmethylnaproxen, has been shown to interfere with the Jendrassik-Mita method for measuring total bilirubin. Samples from patients who have taken Naproxen have shown spurious elevation in total bilirubin levels. 73 Because ethnic data is not always readily available, this report includes an eGFR for both -Americans and non- Americans. The National Kidney Disease Education Program (NKDEP) does not endorse the use of the MDRD equation for patients that are not between the ages of 18 and 70, are , have extremes of body size, muscle mass, or nutritional status, or are non- or non-. According to the National Kidney Foundation, irrespective of diagnosis, the stage of the disease is based on the level of kidney function: Stage Description GFR(mL/min/1.73 m(2)) 1 Kidney damage with normal or decreased GFR 90 2 Kidney damage with mild decrease in GFR 60-89 3 Moderate decrease in GFR 30-59 4 Severe decrease in GFR 15-29 5 Kidney failure <15 (or dialysis) 74 CHOLESTEROL INTERPRETATION: Desirable: Less than 200 MG/DL Borderline-High Risk: 200-239 MG/DL High-Risk: 240 MG/DL and over 75 HDL INTERPRETATION: Undesirable: High Risk: Less than 40 MG/DL Desirable: Low Risk: Greater than 60 MG/DL 76 LDL INTERPRETATION: Low Risk Optimal Level: LDL Less than 100 MG/DL Near or Above Optimal: LDL 100-129 MG/DL Borderline High Risk: LDL 130-159 MG/DL High Risk: LDL 160-189 MG/DL Very High Risk: LDL Greater than 189 MG/DL 77 Test Performed by: [place] [address] Neonatal Social Worker: Kishan Fritz III, M.D. 78 -- REFERENCE VALUE -- 25-HYDROXY D TOTAL (D2+D3) Optimum levels in the normal population are 25-80 Test Performed by: [place] [address] Neonatal Social Worker: Kishan Fritz III, M.D. 79 Recommended INR for Patients on Oral Anticoagulants Prophylaxis 2.0 - 3.0 Treatment of thrombosis 2.0 - 3.0 Prevention of embolism 2.0 - 3.0 Prevention of embolism from prosthetic heart valves 2.5 - 3.5 80 DIAGNOSIS,TREATMENT,AND THERAPY MUST BE BASED ON THE INR VALUE ALONE. Procedures Date CPT Code Description Status 07/01/2012 Mammogram Completed 01/02/2007 85599 Color Flow Doppler/Interp & Reprt Completed 01/02/2007 72699 Pulse Wave/Continuous-Interp.RPT Completed 01/02/2007 69406 Pulse Wave/Continuous-Interp.RPT Completed 01/02/2007 32450 Echocardiogram Completed Encounters Type Date Location Provider CPT E/M Dx Office Visit 02/09/2017 9:50a [facility] Nguyen Kim M.D. 76836 E03.9 - [place] J01.90 H61.21 Office Visit 12/24/2016 1:00p [facility] Jonah Romero M.D. 68654 F25.9 Medicine - [address] E03.9 E78.2 Office Visit 01/27/2016 3:00p [facility] [place] [address] K21.9 K80.80 Office Visit 12/04/2015 2:00p [facility] [place] [address] Z11.3 Office Visit 10/11/2015 10:20a [facility] Randall Navarrete M.D. 47668 R53.83 - [address] R10.9 R19.5 R82.99 Office Visit 05/30/2015 11:30a [facility] [place] [address] K04.0 - [address] Office Visit 02/25/2015 3:20p [facility] Randall Navarrete M.D. 28563 789.04 - [address] V72.40 787.91 Office Visit 07/27/2014 10:00a [facility] [place], [address]35 726.71 C.M.A. Valerie Office Visit 07/17/2014 2:00p [facility] [place] [address] 465.8 - [place] 729.5 465.9 Office Visit 04/23/2014 2:00p [facility] [place] [address] 724.2 [place] Office Visit 02/28/2014 4:00p [facility] - [place] 00027 477.9 Paco Aguilera, N.P. Office Visit 01/18/2014 2:30p [facility] - Yarelis Majano, 67884 782.3 Paco N.P. 788.41 786.07 786.30 Office Visit 11/29/2013 2:30p [facility] Layla DietrichJones, 98939 272.2 Medicine - N.P. [place] 244.9 278.02 788.42 Office Visit 05/24/2013 1:30p [facility] aLyla DietrichJones, 37878 786.2 Medicine - N[facility]. [place] 380.4 477.9 Office Visit 03/22/2013 2:20p [facility] Arthur Rockwell, 64849 415.19 - Paco Padilla,FAC 415.11 278.02 V58.61 786.2 281.1 244.9 Office Visit 01/04/2013 9:00a [facility] Laylamariza LoeraertNess, 85985 626.0 Medicine - N[facility]. [place] Office Visit 11/16/2012 4:00p [facility] Layla Aguilera, 87470 272.2 Medicine - N.P. [place] 415.11 V58.61 Office Visit 10/19/2012 2:30p [facility] Layla BenzNess, 88815 V70.3 Medicine - N[facility]. [place] V74.1 V73.3 V61.7 Office Visit 06/17/2012 12:30p [facility] Yarelis Majano, N.P. 21926 305.1 - [place] V58.61 415.11 782.3 V76.10 Office Visit 05/18/2012 1:00p [facility] Layla Aguilera, 17523 786.59 Medicine - N[facility]P. [place] 272.2 Office Visit 05/04/2012 1:00p [facility] Layla [place], 57343 272.4 Medicine - N.P. [place] Office Visit 04/27/2012 2:00p [facility] Layla Aguilera, 33112 V70.8 Medicine - N.P. [place] 295.72 244.9 V58.61 415.11 278.02 305.1 V70.0 Plan of Care Future Appointment(s):08/11/2017 9:30 am - Im Nurse Holter Monitor at [facility]08/10/2017 9:30 am - Im Nurse Holter Monitor at [facility]08/02/2017 - Arthur Rockwell M.D.,FACPR00.2 PalpitationsNew Orders:Holter MonitorComments:Receive the holter monitor test for your palpitations.R06.00 Dyspnea, unspecifiedComments:Take a Pulmonary function test and we will call you with a new plan depending on the results from the test. 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
[2017-09-06 22:58] LABS: Urine Appearance Cloudy; Urine Blood Negative (Negative); Urine Color Yellow; Urine Ketones Negative (Negative); Urine Protein Negative (Negative); Urine Specific Gravity 1.016 (1.010-1.030); Urine Urobilinogen Negative (Negative)
[2017-09-06 23:28] LABS: ABS Basophils 0.1 10^3/ul (0-0.2); ABS Eosinophils 0.1 10^3/ul (0-0.6); ABS Lymphocytes 3.3 10^3/ul (1.0-4.8); ABS Monocytes 0.7 10^3/ul (0-0.8); ABS Neutrophils 4.8 10^3/ul (1.5-7.7); ABS Nucleated RBC 0 10^3/ul; Eosinophil % 1.6 % (0-6); Hematocrit 40 % (35-47); Hemoglobin 13.8 g/dl (12.0-16.0); Mean Corpuscular HGB Conc 34 g/dl (31-36); Mean Corpuscular Hemoglobin 33 pg (27-31); Mean Corpuscular Volume 96 fL (80-97); Mean Platelet Volume 9 um3 (7.4-10.4); Nucleated Red Blood Cells % 0; Platelet Count 186 10^3/ul (150-450); Red Blood Count 4.17 10^6/ul (4.0-5.4); Red Cell Distribution Width 12 % (10.5-15)
[2017-09-06 23:42] LABS: EGFR Non-African American 69.8 (>60)
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
[2017-09-07] MEDS ORDERED: Acetaminophen TAB* 325 MG PO PRN (03:50)
[2017-09-07] MEDS ORDERED: Al Hydrox/Mg Hydrox/Simet LIQ* 30 ML UDC PO PRN (03:50)
[2017-09-07] MEDS ORDERED: LORazepam TAB(*) 1 MG PO PRN (03:52)
[2017-09-07] MEDS: ARIPiprazole TAB* 20 MG PO SCH (08:38)
[2017-09-07] MEDS: Vitamin THERAPEUTIC TAB PO SCH (08:38)
--- NOTE | 2017-09-07 14:24 | ADMNOTE ---
History - Objective HPI: HISTORY AND PHYSICAL PATIENT: Geetha Chao : 1970 AGE: 47 PROVIDER: Giancarlo Saha DO DATE OF ADMISSION: 09/06/2017 JUSTIFICATION FOR ADMISSION: Patient has recent onset of psychotic symptoms including hallucinations, paranoia, and insomnia in context of discontinuation of monthly Abilify injections due to insurance non payment. Patient was feeling unsafe in the community and is gravely disabled requiring imminent inpatient psychiatric treatment. CHIEF COMPLAINT: "....I felt that I was unsafe... 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 Patient is high functioning and has been receiving fci outpatient psychiatric treatment at [facility] by Dr. Gaona. She has been in fci remission with excellent treatment response to Abilify Mantenna which she has been receiving for more than 10 years (300 mg Q28 days) and which was being paid for by Medicare. Per patient Insurance coverage of Abilify injections stopped two months ago and she was changed to oral abilify 15 mg daily. She has difficulty remembering to take her medication and inadvertantly has missed dosages. In week prior to current admission she missed all doses of her Abilify. Patient also broke up with fci boyfriend in past month. The combination of non compliance with her medication and the stress of break up with her long time boyfriend has resulted in exacerbation of psychotic symptoms over the past month including delusions of persecution, visual hallucinations of "shadow men", AH of "gunshots and loud noises", increased anxiety and fear that she is being stalked by her ex boyfriend through social networking, texting and coming to her home at night and spying on her. Patient recently began dating a new man and she was at his home on the night of admission. Patient has good insight about her psychiatric disorder. She asked her new boy friend to take her to the hospital. Patient further reports increased manic symptoms including insomnia, agitation, paranoia, hypervigilance, irritability, racing thoughts, anxiety in the evening , difficulty relaxing, increased goal directed activities. PAST PSYCHIATRIC HISTORY: receives outpatient treatment with Dr. Gaona. Last hospitalization was more than 10 years ago. suicidal ideation in past but denies attempt functioned well on Abilify Mantenna 300 mg Q28 days for past 10 years. Substance Abuse History: Denies Alcohol or drug use history + Tobacco use 3/4 ppd for 20 or more years. PAST MEDICAL HISTORY: DENIES CURRENT MEDICATION: ABILIFY 15 MG ONCE DAILY IN AM ALLERGIES:BEE VENOM AND CIPROFLOXACIN FAMILY AND SOCIAL HISTORY: Patient reports that her parents live close to her and are her main supports. 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 She has three daughters all in their teens whom she shares joint custody with her ex . no history of legal problems or incarceration. family history of depression and bipolar disorder. REVIEW OF SYSTEMS AND PHYSICAL EXAMINATION PERFORMED BY Dr. Paul on 09/06/2016 and is documented as follows: Review of Systems Constitutional: Negative Negative: Fever, Chills, Fatigue Eyes: Negative Negative: Photophobia, Blurred Vision, Diplopia, Drainage, Erythema ENT: Negative Cardiovascular: Negative Respiratory: Negative Gastrointestinal: Negative Positive: no symptoms reported Musculoskeletal: Negative Skin: Negative Neurological: Negative Positive: Anxious - subtle resting tremor - denies SI/HI All Other Systems Reviewed And Are Negative: Yes Physical Exam Triage Information Reviewed: Yes Vital Signs On Initial Exam: Initial Vitals Temp Pulse Resp BP Pulse Ox 97.4 F 87 18 137/80 99 09/06/17 21:29 09/06/17 21:29 09/06/17 21:29 09/06/17 21:29 09/06/17 21:29 Vital Signs Reviewed: Yes Appearance: Positive: Well-Appearing, No Pain Distress, Well-Nourished Skin: Positive: Warm, Dry Head/Face: Positive: Normal Head/Face Inspection Eyes: Positive: Normal, EOMI ENT: Positive: Hearing grossly normal, Pharynx normal - oral mucosa dry Neck: Positive: Supple Respiratory/Lung Sounds: Positive: Clear to Auscultation, Breath Sounds Present Cardiovascular: Positive: Normal, RRR, S1, S2 Abdomen Description: Positive: Nontender, Soft Bowel Sounds: Positive: Present Musculoskeletal: Positive: Normal, Strength/ROM Intact Neurological: Positive: Sensory/Motor Intact, Alert, Oriented to Person Place, Time, CN Intact II-III Psychiatric: Positive: Anxious - subtle anxiety but appears comfortable being here MENTAL STATUS EXAMINATION: 47 yo overweight woman who appears her stated age. She is dressed casually and neatly. She has good hygiene. Speech is normal rate and volume. no evidence of pressured speech. normal fluency and spontaneity. normal psychomotor behavior Thought process is organized and goal directed. Thought content: patient verbalizes prescence of auditory and visual hallucinations with increased frequency over past few weeks as well as presence of paranoid thoughts, of not being safe, of being in home and sensing a presence that is watching her through the window or is coming to harm her. patient denies current SI,HI, VH,AH. She is not responding to internal stimuli. Alert and fully oriented in all spheres. Mood: denies feeling depressed. denies ubrt or euphoria does feel somewhat irritable. admits to insomnia, normal appetite. Insight is very good. Judgment is intact and unusually good for a person with a psychotic disorder. Laboratory Studies: Laboratory Results - last 24 hr 09/06/17 09/06/17 09/06/17 22:20 22:20 23:07 WBC RBC Hgb Hct MCV MCH MCHC RDW Plt Count MPV Neut % (Auto) Lymph % (Auto) Gaston % (Auto) Eos % (Auto) Baso % (Auto) Absolute Neuts (auto) Absolute Lymphs (auto) DI Absolute Monos (auto) Absolute Eos (auto) Absolute Basos (auto) Absolute Nucleated RBC Nucleated RBC % Sodium 136 Potassium 4.3 Chloride 107 Carbon Dioxide 24 Anion Gap 5 BUN 18 Creatinine 0.87 Est GFR ( Amer) 89.8 Est GFR (Non-Af Amer) 69.8 BUN/Creatinine Ratio 20.7 H Glucose 101 H Calcium 9.6 Total Bilirubin 0.30 AST 16 ALT 17 Alkaline Phosphatase 43 Total Protein 7.6 Albumin 4.4 Globulin 3.2 Albumin/Globulin Ratio 1.4 TSH 5.35 Urine Color Yellow Urine Appearance Cloudy Urine pH 7.0 Ur Specific Alda 1.016 Urine Protein Negative Urine Ketones Negative Urine Blood Negative Urine Nitrate Negative Urine Bilirubin Negative Urine Urobilinogen Negative Ur Leukocyte Esterase 1+ H Urine WBC (Auto) Trace(0-5/hpf) Urine RBC (Auto) Absent Ur Squamous Epith Cells Present H Urine Bacteria Absent Urine Glucose Negative Salicylates < 2.50 Urine Opiates Screen None detected Acetaminophen < 15 Ur Barbiturates Screen None detected Ur Phencyclidine Scrn None detected Ur Amphetamines Screen None detected U Benzodiazepines Scrn None detected Urine Cocaine Screen None detected U Cannabinoids Screen None detected Serum Alcohol < 10 09/06/17 23:07 WBC 9.0 RBC 4.17 Hgb 13.8 Hct 40 MCV 96 MCH 33 H MCHC 34 RDW 12 Plt Count 186 MPV 9 Neut % (Auto) 52.7 Lymph % (Auto) 37.0 Gaston % (Auto) 7.7 Eos % (Auto) 1.6 Baso % (Auto) 1.0 Absolute Neuts (auto) 4.8 Absolute Lymphs (auto) 3.3 Absolute Monos (auto) 0.7 Absolute Eos (auto) 0.1 Absolute Basos (auto) 0.1 Absolute Nucleated RBC 0 Nucleated RBC % 0 Sodium Potassium Chloride Carbon Dioxide Anion Gap BUN Creatinine Est GFR ( Amer) Est GFR (Non-Af Amer) BUN/Creatinine Ratio Glucose Calcium Total Bilirubin AST ALT Alkaline Phosphatase Total Protein Albumin Globulin Albumin/Globulin Ratio TSH Urine Color Urine Appearance Urine pH Ur Specific Alda Urine Protein Urine Ketones Urine Blood Urine Nitrate Urine Bilirubin Urine Urobilinogen Ur Leukocyte Esterase Urine WBC (Auto) Urine RBC (Auto) Ur Squamous Epith Cells Urine Bacteria Urine Glucose Salicylates Urine Opiates Screen Acetaminophen Ur Barbiturates Screen Ur Phencyclidine Scrn Ur Amphetamines Screen U Benzodiazepines Scrn Urine Cocaine Screen U Cannabinoids Screen Serum Alcohol DIAGNOSES: SCHIZOAFFECTIVE DISORDER BIPOLAR TYPE. ACUTE EXACERBATION OF PSYCHOSIS. IMPRESSION: 47 yo single mother of 3 daughters with history of schizoaffective disorder presents with acute exacerbation of psychotic symptoms in the context of discontinuation of Abililfy PEREZ which she was taking forpast 10 years with result of sustained remission. 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 Insurance stopped paying for her injection and she was switched to oral Abilify. She has been only partially adherent leading to relapse. patient is admitted for psychiatric treatment of psychosis and to stabilize her mental status. Plan: On Q 15 min observation status individual, group, and milieu therapies Start Ativan 1 mg QHS prn insomnia may repeat x 1 Increase Abilify to 20 mg qam will attempt to get prior authorization for Abililfy PEREZ either as Aristada or Mantenna from insurance company increase data base by contacting collateral sources including Dr. Gaona at [facility] Plan - Treatment Plan Medications: Current Medications Acetaminophen (Tylenol Tab*) 650 mg PO Q4H PRN PRN Reason: PAIN or TEMP > 101 F Al Hydrox/Mg Hydrox/Simethicone (Maalox Plus*) 30 ml PO Q4H PRN PRN Reason: INDIGESTION Aripiprazole (Abilify Tab*) 20 mg PO DAILY [facility] Last Admin: 09/07/17 08:38 Dose: 20 mg Lorazepam (Ativan Tab(*)) 1 mg PO BEDTIME PRN PRN Reason: ANXIETY Multivitamins (Theragran Tab*) 1 tab PO DAILY [facility] Last Admin: 09/07/17 08:38 Dose: Not Given
[2017-09-08] MEDS: ARIPiprazole TAB* 20 MG PO SCH (07:56)
[2017-09-08] MEDS: Vitamin THERAPEUTIC TAB PO SCH (07:56)
--- NOTE | 2017-09-08 11:25 | PN ---
MHU: Group Therapy Note - Service Type Service Type: [id number] Group Psychotherapy - Cognitive Behavioral Group Therapy ( CBT):Patient was attentive and participatory in CBT programming this morning, and remained in good behavioral control. Patient expressed positive insights regarding relevant treatment interventions and goals.
--- NOTE | 2017-09-08 12:21 | PN ---
Subjective - Subjective Date of Service: 09/08/17 Service Type: [id number] Hosp care 15 min low complexity Subjective: Cait is pleasant and cooperative, going to groups, social and visible in the milieu setting. She slept poorly last night per staff notes but does not seem concerned by this. She denies SI or HI and states that she is not currently experiencing any delusions, and none are elicited on examination. Unit SW staff indicate that they are working with the patient's insurance company to have the PEREZ version of aripiprazole, which she has done well on in the past, covered again. The patient has no complaints. Objective - Appearance Appearance: Well Developed/Nourished Dysmorphic Features: No Hygiene: Normal Grooming: Well Kept - Behavior Psychomotor Activities: Normal Exhibits Abnormal Movement: No - Attitude and Relatedness Attitude and Relatedness: Cooperative Eye Contact: Fair - Speech Quality: Unpressured Latencies: Normal Quantity: Appropriate - Mood Patient's Decription of Mood: "Good" - Affect Observed Affect: Fair Affect Consistent with: Euthymia - Thought Process Patient's Thought Process: Coherent Thought Content: No Passive Wish, No Suicidal Planning, No Homicidal Ideation, No Paranoid Ideation - Sensorium Experiencing Hallucinations: No, Sensorium is Clear Type of Hallucinations: Visual: No, Auditory: No, Command: No - Level of Consciousness Level of Consciousness: Alert Orientation: Yes Intact, Yes Orientated to Time, Yes Orientated to Place, Yes Orientated to Person - Impulse Control Impulse Control: Tenuous - Insight and Judgement Insight and Judgement: Fair - Group Participation Particating in Group Activities: Yes - Medication Management Medication Management Adherence: Yes Assessment - Assessment Merits Inpatient Hospitalization: Consolidate Improvements, Pending Safe DC Plan Inpatient DSM-IV Dx: Schizophrenia Clinical Impression: 47 y.o. single, white female with a history of schizophrenia admitted voluntarily for treatment of worsening psychotic symptoms in the setting of being switched from long-acting injectable to daily oral aripiprazole secondary to insurance coverage issues. Plan - Plan Treatment Plan: Name: CAIT COLLINS Birthdate: 1970 [id number] The patient is currently on 20mg of daily oral aripiprazole, which she is tolerating well, without untoward effects. She prefers PEREZ Maintana and we are working to receive prior-authorization from the insurance provider in order to resume this. Continue to treat on the inpatient unit. Continued Medication Management: Continue Outpt Medication Medications: Current Medications Acetaminophen (Tylenol Tab*) 650 mg PO Q4H PRN PRN Reason: PAIN or TEMP > 101 F Al Hydrox/Mg Hydrox/Simethicone (Maalox Plus*) 30 ml PO Q4H PRN PRN Reason: INDIGESTION Aripiprazole (Abilify Tab*) 20 mg PO DAILY [facility] Last Admin: 09/08/17 07:56 Dose: 20 mg Lorazepam (Ativan Tab(*)) 1 mg PO BEDTIME PRN PRN Reason: ANXIETY Multivitamins (Theragran Tab*) 1 tab PO DAILY [facility] Last Admin: 09/08/17 07:56 Dose: Not Given - Discharge Plan Discharge Plan: Inpatient Hospitalization
[2017-09-09] MEDS ORDERED: LORazepam TAB(*) 1 MG PO ONE (02:50)
[2017-09-09] MEDS ORDERED: LORazepam TAB(*) 1 MG ONE (02:54)
[2017-09-09] MEDS: ARIPiprazole TAB* 20 MG PO SCH (08:24)
[2017-09-09] MEDS: Vitamin THERAPEUTIC TAB PO SCH (08:27)
--- NOTE | 2017-09-09 16:50 | PN ---
Subjective - Subjective Date of Service: 09/09/17 Service Type: [id number] Hosp care 15 min low complexity Subjective: past two days she has been improved. she reports no further auditory or visual hallucinations she also reports that her paranoid ideation has remitted she is sleeping well. she denies side effects she wants very much to restart Abilify long acting injectable monthly. this was stopped after having taken it for more than 10 years it was highly effective for keeping her psychotic symptoms in full remission. Objective - Appearance Dysmorphic Features: No Hygiene: Normal Grooming: Well Kept - Behavior Psychomotor Activities: Normal Exhibits Abnormal Movement: No - Attitude and Relatedness Attitude and Relatedness: Cooperative Eye Contact: Good - Speech Quality: Unpressured Latencies: Normal Quantity: Appropriate - Mood Patient's Decription of Mood: "Okay" - Affect Observed Affect: Good - Thought Process Patient's Thought Process: Coherent, Goal Directed Thought Content: No Passive Wish, No Suicidal Planning, No Homicidal Ideation, No Paranoid Ideation - Sensorium Experiencing Hallucinations: No, Sensorium is Clear Type of Hallucinations: Visual: No, Auditory: No, Command: No - Level of Consciousness Level of Consciousness: Alert Orientation: Yes Intact, Yes Orientated to Time, Yes Orientated to Place, Yes Orientated to Person - Impulse Control Impulse Control: Intact - Insight and Judgement Insight and Judgement: Good - Group Participation Particating in Group Activities: Yes - Medication Management Medication Management Adherence: Yes Assessment - Assessment Merits Inpatient Hospitalization: For Stabilization, Consolidate Improvements, For Discharge Planning Inpatient DSM-IV Dx: Schizophrenia Plan - Plan Treatment Plan: Plan: abilify 20 mg qam ativan 1 mg qhs to be discontinued as patient requests trazodone 50 mg qhs instead plan is to get approval from insurance company to reinstate abilify injectable as aristada given q 6 weeks which is a lower cost injectable. probable discharge for tomorrow
[2017-09-09] MEDS ORDERED: traZODone TAB* 50 MG TAB PO SCH (21:00)
[2017-09-10] MEDS: ARIPiprazole TAB* 20 MG PO SCH (08:30)
[2017-09-10] MEDS: Vitamin THERAPEUTIC TAB PO SCH (08:30)
[2017-09-10 08:49] VITALS: BP 127/74
--- NOTE | 2017-09-10 10:46 | DCNOTE ---
Subjective - Subjective Subjective: DISCHARGE SUMMARY PATIENT: Holly Chao : 1970 AGE: 47 PROVIDER: Giancarlo Saha D.O. DATE OF ADMISSION: 09/07/2017 DATE OF DISCHARGE: 09/10/2017 DISCHARGE DIAGNOSES: Schizoaffective Disorder Acute exacerbation medication non adherence CONDITION AT THE TIME OF DISCHARGE: Improved. Stable MENTAL STATUS EXAM AT DISCHARGE: DISCHARGE INSTRUCTIONS: A. MEDICATIONS: Trazodone 50 mg qhs prn insomnia Abilify 20 mg po daily x 14 days then discontinue Abilify Mantenna 400mg IM Q 28 days. Next injection due on October 08, 2017 B. DIET: Regular C. ACTIVITIES: TOLERATED NICOTINE REPLACEMENT THERAPY WAS OFFERED BUT THE PATIENT DECLINED IT, INDICATING THAT HIS PREFERENCE IS TO CONTINUE SMOOKING FOR THE TIME BEING. DESPITE THIS SHE WAS GIVEN THE [place] [facility] QUITLINE WHICH IS [phone] THERE ARE NO LABORATORY OR DIAGNOSTIC STUDIES PENDING AT THE TIME OF DISCHARGE. D. FOLLOW UP CARE: Dr. Gaona 09/22/2017 [facility] at 5 pm Oanh Gallegos, therapist at [facility] on 09/14/2017 at 10:45 AM E. SUBSTANCE ABUSE FOLLOWUP: not indicated ATTENDING PSYCHIATRIST HOSPITAL COURSE: PART A. JUSTIFICATION FOR ADMISSION: Patient has recent onset of psychotic symptoms including hallucinations, paranoia, and insomnia in context of discontinuation of monthly Abilify injections due to insurance non payment. Patient was feeling unsafe in the community and is gravely disabled requiring imminent inpatient psychiatric treatment. CHIEF COMPLAINT: "....I felt that I was unsafe... 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 Patient is high functioning and has been receiving terminal manager outpatient psychiatric treatment at [facility] by Dr. Gaona. She has been in assisted remission with excellent treatment response to Abilify Mantenna which she has been receiving for more than 10 years (300 mg Q28 days) and which was being paid for by Medicare. Per patient Insurance coverage of Abilify injections stopped two months ago and she was changed to oral abilify 15 mg daily. She has difficulty remembering to take her medication and inadvertantly has missed dosages. In week prior to current admission she missed all doses of her Abilify. Patient also broke up with assisted boyfriend in past month. The combination of non compliance with her medication and the stress of break up with her long time boyfriend has resulted in exacerbation of psychotic symptoms over the past month including delusions of persecution, visual hallucinations of "shadow men", AH of "gunshots and loud noises", increased anxiety and fear that she is being stalked by her ex boyfriend through social networking, texting and coming to her home at night and spying on her. Patient recently began dating a new man and she was at his home on the night of admission. Patient has good insight about her psychiatric disorder. She asked her new boy friend to take her to the hospital. Patient further reports increased manic symptoms including insomnia, agitation, paranoia, hypervigilance, irritability, racing thoughts, anxiety in the evening , difficulty relaxing, increased goal directed activities. PAST PSYCHIATRIC HISTORY: receives outpatient treatment with Dr. Gaona. Last hospitalization was more than 10 years ago. suicidal ideation in past but denies attempt functioned well on Abilify Mantenna 300 mg Q28 days for past 10 years. Substance Abuse History: Denies Alcohol or drug use history + Tobacco use 3/4 ppd for 20 or more years. PAST MEDICAL HISTORY: DENIES CURRENT MEDICATION: ABILIFY 15 MG ONCE DAILY IN AM ALLERGIES:BEE VENOM AND CIPROFLOXACIN FAMILY AND SOCIAL HISTORY: Patient reports that her parents live close to her and are her main supports. 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 She has three daughters all in their teens whom she shares joint custody with her ex . no history of legal problems or incarceration. family history of depression and bipolar disorder. HOSPITAL COURSE : PART B PSYCHIATRIC TREATMENT RENDERED: Patient was medically cleared by hospitalist in ED for admission to psychiatry. She was admitted on q 15 min observation initially which was changed to q 30 minutes on the second hospital day. patient was integrated into milieu and afforded individual, group and milieu therapy by our multidisciplinary staff. patient was seen daily by social media assistant and psychiatrist for mental status reevaluation, medication adjustment and discharge planning. patient was cooperative with staff, attended all groups and an active participant in her own care. patient was started on abilify 20 mg daily by mouth and after only a few days she reported that her mood and psychotic symptoms were responding to consistent administration of the medication. On day of discharge, she received an injection of Abilify Mantenna 400mg IM and was very pleased that she was able to restart her monthly injections as it was the discontinuation of these injections for a two month period which she viewed as contributing to an exacerbation of her p sychotic symptoms. patient reported that she was no longer having AH,VH, persecutory delusions, ideas of reference , felt calm and without agitation. she slept well while in the hospital with ativan 1 mg but requested a prescription for trazodone as she was fearful of becoming "addicted". patient denied SI, HI, and reported she intended to follow up with her therapist and psychiatrist at [facility] patient's admission lab work was all within normal limits including CBC, CMP, UA , and urine toxicology screen (negative) GIANCARLO SAHA DO
--- NOTE | 2017-09-10 11:24 | PN ---
MHU: Group Therapy Note - Service Type Service Type: [id number] Group Psychotherapy - Cognitive Behavioral Group Therapy ( CBT):Patient was attentive and participatory in CBT programming this morning, and remained in good behavioral control. Patient expressed positive insights regarding relevant treatment interventions and goals.
== END 2017-09-10 12:37 | disposition home or self-care (01) | DRG 750 ==
LOC: ED 21:27 → BSU 09-07 02:35
PROVIDERS: ADMIT Psychiatry & Neurology Psychiatry; ATTEND Psychiatry & Neurology Psychiatry
PROC: GZHZZZZ Group Psychotherapy (ICD-10-PCS; principal; 2017-09-08)
DX: F25.9 Schizoaffective disorder, unspecified (principal); F22 Delusional disorders; E03.9 Hypothyroidism, unspecified; E78.00 Pure hypercholesterolemia, unspecified; J44.9 Chronic obstructive pulmonary disease, unspecified; K21.9 Gastro-esophageal reflux disease without esophagitis; F32.9 Major depressive disorder, single episode, unspecified; R40.2412 Glasgow coma scale score 13-15, at arrival to emergency department; G47.00 Insomnia, unspecified; F17.210 Nicotine dependence, cigarettes, uncomplicated; Z81.8 Family history of other mental and behavioral disorders; Z88.1 Allergy status to other antibiotic agents; Z91.030 Bee allergy status; Z86.711 Personal history of pulmonary embolism; Z90.49 Acquired absence of other specified parts of digestive tract; Z82.49 Family history of ischemic heart disease and other diseases of the circulatory system; Z91.14 Patient's other noncompliance with medication regimen
CPT/HCPCS: 36415; 80053; 80061; 80307; 80320; 80329; 81003; 81015; 83036; 84443; 85025; 87086; 90853; 99222; 99231; 99238; 99284; A9270-GY; G0480

== ENCOUNTER 2017-10-25 12:10 | Emergency (ER) | payer BC, MEDICARE ==
[2017-10-25 12:44] VITALS: BP 105/63
--- NOTE | 2017-10-25 12:46 | UC ---
Ear Complaint HPI - HPI Summary HPI Summary: Pt presents with left ear pain and left lower tooth pain for 2 days. She tells me that her ear began becoming painful spontaneously 2 days ago and feels as though she's had some decreased hearing from that ear. Also says that a tooth on her lower left jaw is a little tender, thinks a filling might have come loose while eating. Denies fever, chills, cough, sore throat, SOB, chest pain, abdominal pain, n/v/d/c, headache, or dizziness. - History of Current Complaint Chief Complaint: UCEar Stated Complaint: EAR PAIN Time Seen by Provider: 10/25/17 12:46 Hx Obtained From: Patient Hx Last Menstrual Period: 10/09/17 Severity Initially: Moderate Severity Currently: Moderate Pain Intensity: 7 Pain Scale Used: 0-10 Numeric - Allergies/Home Medications Allergies/Adverse Reactions: Allergies Allergy/AdvReac Type Severity Reaction Status Date / Time bee venom protein (honey bee) Allergy Severe Anaphylatic Verified 10/25/17 12:45 Shock ciprofloxacin [From Cipro] Allergy Intermediate Anaphylatic Verified 10/25/17 12 :44 Shock PMH/Surg Hx/FS Hx/Imm Hx Endocrine History: Hypothyroidism Psychological History: Anxiety Other History Of: Anticoagulant Therapy - coumadin FOR PE - Surgical History Surgical History: Yes Surgery Procedure, Year, and Place: 10/2012, [facility], Cholecystectomy - Family History Known Family History: Positive: Hypertension, Other - cancers, blood clots - Social History Occupation: Employed Full-time Lives: With Family Alcohol Use: None Substance Use Type: None Smoking Status (MU): Current Every Day Smoker Type: Cigarettes Amount Used/How Often: 3/4 PPD Length of Time of Smoking/Using Tobacco: 10+ yrs Have You Smoked in the Last Year: No Household Exposure Type: Cigarettes - Immunization History Most Recent Influenza Vaccination: MAY 2014 Most Recent Tetanus Shot: [facility] Most Recent Pneumonia Vaccination: NONE Review of Systems Constitutional: Negative Skin: Negative Eyes: Negative ENT: Dental Pain, Ear Ache Respiratory: Negative Cardiovascular: Negative Gastrointestinal: Negative Musculoskeletal: Negative Neurological: Negative Psychological: Negative All Other Systems Reviewed And Are Negative: Yes Physical Exam Triage Information Reviewed: Yes Appearance: Well-Appearing, No Pain Distress, Well-Nourished Vital Signs: Initial Vital Signs Temp 98.4 F 10/25/17 12:38 Pulse 79 10/25/17 12:38 Resp 18 10/25/17 12:38 BP 105/63 10/25/17 12:38 Pulse Ox 99 10/25/17 12:38 Vital Signs Reviewed: Yes Eyes: Positive: Conjunctiva Clear. Negative: Conjunctiva Inflamed, Discharge ENT: Positive: Hearing grossly normal, Pharynx normal, TM bulging - Mild left ear, TM red - Mild left ear, Dental tenderness - Tooth 29 mild, Uvula midline. Negative: Pharyngeal erythema, Nasal congestion, Nasal drainage, Tonsillar swelling, Tonsillar exudate, Hoarse voice, Sinus tenderness Dental: Positive: Percussion Tenderness @ - Tooth 29 mild, Gross Decay/Caries @ . Negative: Dental Fracture @, Abscess @, Cellulitis @, Bleeding Neck: Positive: Supple, Nontender, No Lymphadenopathy Respiratory: Positive: Lungs clear, Normal breath sounds, No respiratory distress, No accessory muscle use Cardiovascular: Positive: RRR, No Murmur, Pulses Normal Neurological: Positive: Alert Psychological: Positive: Age Appropriate Behavior Skin: Negative: rashes Ear Complaint Course/Dx - Course Course Of Treatment: Left ear otitis media. Dental pain - Differential Dx/Diagnosis Provider Diagnoses: Left ear otitis media. Dental pain tooth 29 Discharge - Discharge Plan Condition: Stable Disposition: HOME Prescriptions: Amoxicillin/Clavulanate TAB* [Augmentin TAB 875*] 875 mg PO BID #14 tab Patient Education Materials: Ear Infection (ED) Forms: *Work Release Referrals: Arthur Rockwell MD [Primary Care Provider] - Additional Instructions: If you develop a fever, shortness of breath, chest pain, new or worsening symptoms - please call your PCP or go to the ED. 1) May try over the counter Saman's earache drops as needed for ear pain
== END 2017-10-25 13:01 | disposition home or self-care (01) ==
LOC: UCEAST 12:10
DX: H66.92 Otitis media, unspecified, left ear (principal); K08.89 Other specified disorders of teeth and supporting structures; E03.9 Hypothyroidism, unspecified; F41.9 Anxiety disorder, unspecified; Z79.01 Long term (current) use of anticoagulants; Z88.1 Allergy status to other antibiotic agents; Z91.030 Bee allergy status; F17.210 Nicotine dependence, cigarettes, uncomplicated
CPT/HCPCS: 99211; G0463

== ENCOUNTER 2018-03-23 09:41 | Emergency (ER) | payer BC, MEDICARE ==
--- NOTE | 2018-03-23 10:06 | UC ---
Upper Extremity HPI - HPI Summary HPI Summary: Pt is a 48 y/o F c/o LUE pain localized on the inner elbow. Pain onset this AM is rated a 4/10, upon question. She denies any recent trauma. Assoc. Sx: Ankle swelling. Denies: SOB, neck pain. Aggravating factors: Palpation. PMHx: Pulmonary Embolism (15 years ago), Asthma. Notes she recieved shot in L shoulder recently but is not too tender anymore. - History of Current Complaint Chief Complaint: UCUpperExtremity Stated Complaint: LEFT ARM COMPLAINT Time Seen by Provider: 03/23/18 09:58 Hx Obtained From: Patient Hx Last Menstrual Period: 03/20/18 Onset/Duration: Lasting Hours - This AM, Still Present Severity Currently: Moderate Pain Intensity: 4 Pain Scale Used: 0-10 Numeric Location Of Pain: Is Discrete @ - L inner elbow Aggravating Factor(s): Other - palpation - Allergies/Home Medications Allergies/Adverse Reactions: Allergies Allergy/AdvReac Type Severity Reaction Status Date / Time bee venom protein (honey bee) Allergy Severe Anaphylatic Verified 10/25/17 12:45 Shock ciprofloxacin [From Cipro] Allergy Intermediate Anaphylatic Verified 10/25/17 12 :44 Shock Home Medications: Home Medications ARIPiprazole [Abilify Maintena] 400 mg IM MONTHLY 03/23/18 [History Confirmed ] PMH/Surg Hx/FS Hx/Imm Hx Endocrine History: Other - neg: DM Other Endocrine History: . Cardiovascular History: Other - Neg: CAD, HTN Other Cardiovascular History: . Other History Of: Anticoagulant Therapy - coumadin FOR PE - Surgical History Surgical History: Yes Surgery Procedure, Year, and Place: 10/2012, [facility], Cholecystectomy - Family History Known Family History: Positive: Cardiac Disease, Hypertension, Diabetes, Other - cancers, blood clots - Social History Occupation: Employed Full-time Lives: With Family Alcohol Use: None Substance Use Type: None Smoking Status (MU): Current Every Day Smoker Type: Cigarettes Amount Used/How Often: 3/4 PPD Length of Time of Smoking/Using Tobacco: 10+ yrs Have You Smoked in the Last Year: No Household Exposure Type: Cigarettes - Immunization History Most Recent Influenza Vaccination: MAY 2014 Most Recent Tetanus Shot: [facility] Most Recent Pneumonia Vaccination: NONE Review of Systems Constitutional: Negative - Fever Musculoskeletal: Negative - Neck pain, Other: - Ankle swelling All Other Systems Reviewed And Are Negative: Yes Physical Exam - Summary Physical Exam Summary: General: well-appearing, no pain distress Skin: warm, color reflects adequate perfusion, dry Head: normal Eyes: EOMI, PABLO ENT: normal Neck: supple, nontender Respiratory: CTA, breath sounds present Cardiovascular: RRR Abdomen: soft, nontender Bowel: present Musculoskeletal: normal, strength/ROM intact Neurological: sensory/motor intact, A&O x3 Psychological: affect/mood appropriate Triage Information Reviewed: Yes Vital Signs: Initial Vital Signs Temp 97.9 F 03/23/18 09:48 Pulse 70 03/23/18 09:48 Resp 16 03/23/18 09:48 BP 120/71 03/23/18 09:48 Pulse Ox 98 03/23/18 09:48 Vital Signs Reviewed: Yes Diagnostics - Radiology L-elbow XR Xray Interpretation: No Acute Changes - IMPRESSION: NO ACUTE OSSEOUS INJURY. IF SYMPTOMS PERSIST, RECOMMEND REPEAT IMAGING. Radiology Interpretation Completed By: Radiologist - Report has been reviewed by provider. Deep venous doppler Xray Interpretation: No Acute Changes - IMPRESSION: NO EVIDENCE OF DEEP VENOUS THROMBOSIS. Radiology Interpretation Completed By: Radiologist - Report has been reviewed by provider. Upper Extremity Course/Dx - Course Course Of Treatment: DISCUSSED RESULTS WITH THE PATIENT. WILL USE IBUPROFEN PRN AND F/U PMD PRN; RECHECK SOONER IF WORSE. - Differential Dx/Diagnosis Provider Diagnoses: LEFT ARM/ELBOW PAIN Discharge - Sign-Out/Discharge Documenting (check all that apply): Patient Departure - Discharge Plan Condition: Stable Disposition: HOME Patient Education Materials: Arm Pain (ED) Referrals: Arthur Rockwell MD [Primary Care Provider] - Additional Instructions: FOLLOW UP WITH YOUR DOCTOR. GET RECHECKED FOR ANY WORSENING OF YOUR CONDITION OR QUESTIONS OR CONCERNS. - Billing Disposition and Condition Condition: STABLE Disposition: Home
--- NOTE | 2018-03-23 11:39 | RAD ---
INDICATION: Arm pain after injection of antipsychotic medication. Pain with arm movement. Evaluate for deep venous thrombosis. COMPARISON: None TECHNIQUE: Duplex interrogation of the upperextremity was performed. FINDINGS: Deep veins: The visualized jugular, visualized subclavian, axillary, brachial, radial, and ulnar patent. There is normal compressibility, augmentation, and phasic flow. Superficial veins: The basilic vein is patent. The cephalic vein is very small in caliber and difficult to interrogate. Soft tissues:There are no soft tissue abnormalities. IMPRESSION: NO EVIDENCE OF DEEP VENOUS THROMBOSIS.
--- NOTE | 2018-03-23 11:49 | RAD ---
HISTORY: PAIN LEFT ELBOW/INNER UPPER ARM COMPARISONS: None VIEWS: 4, Frontal, lateral, and oblique views of the left elbow FINDINGS: BONE DENSITY: Normal. BONES: There is no displaced fracture. JOINTS: There is no arthropathy. ALIGNMENT: There is no dislocation. SOFT TISSUES: Unremarkable. OTHER FINDINGS: None. IMPRESSION: NO ACUTE OSSEOUS INJURY. IF SYMPTOMS PERSIST, RECOMMEND REPEAT IMAGING.
[2018-03-23 12:08] VITALS: BP 116/69
== END 2018-03-23 12:05 | disposition home or self-care (01) ==
LOC: UCEAST 09:41
DX: M25.522 Pain in left elbow (principal); F17.210 Nicotine dependence, cigarettes, uncomplicated; Z88.1 Allergy status to other antibiotic agents; Z91.030 Bee allergy status; Z79.01 Long term (current) use of anticoagulants
CPT/HCPCS: 99211; G0463

== ENCOUNTER 2018-05-17 06:18 | Emergency (ER) | payer MEDICARE ==
[2018-05-17] MEDS ORDERED: NS 0.9% 1000 ML* 1,000 ML IV ONE (06:40)
--- NOTE | 2018-05-17 06:48 | ED ---
Abdominal Pain/Female - HPI Summary HPI Summary: Patient presents with abdominal pain over the past 2 days. Reports this was mild and intermittent yesterday however as of this morning it is constant at a 7 out of 10 pain. She reports pain in her left flank that wraps around her left side and pain in her lower abdomen on the left and right sides. She admits to "chunks of stool" over the past couple of days - this is not quite like diarrhea as it is not soft or watery. She denies hematochezia, melena, mucus stools. She also denies new onset nausea or vomiting (no: She admits she gets nausea with dry heaves every time she smokes over the past year however she continues to smoke. No nausea or dry heaves and she is not smoking). She denies dysuria, urinary frequency, urinary urgency, vaginal irritation, discharge, fullness. Denies change in diet. She admits to drinking tea and soda throughout the day and not much water intake. 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 NOTE: has been experiencing more frequent and heavier menstrual cycles than usual over the past few months. H/o abnormal pap 10 yrs ago w/o f/u. Also had essure placed 10 yrs ago and has had intermittent pain since. - History of Current Complaint Chief Complaint: EDAbdPain Stated Complaint: FLANK PAIN, DIARRHEA, SOB Time Seen by Provider: 05/17/18 06:24 Hx Obtained From: Patient Hx Last Menstrual Period: 03/20/18 Pain Intensity: 7 Allergies/Adverse Reactions: Allergies Allergy/AdvReac Type Severity Reaction Status Date / Time bee venom protein (honey bee) Allergy Severe Anaphylatic Verified 05/17/18 06:20 Shock ciprofloxacin [From Cipro] Allergy Intermediate Anaphylatic Verified 05/17/18 06 :20 Shock PMH/Surg Hx/FS Hx/Imm Hx Previously Healthy: Yes Endocrine/Hematology History: Reports: Hx Anticoagulant Therapy - coumadin FOR PE, Hx Thyroid Disease - HYPOTHYROID, Hx Anemia - A TEENAGER Denies: Hx Diabetes, Hx Systemic Lupus Erythematosus Cardiovascular History: Reports: Hx Embolism, Hx Hypercholesterolemia Denies: Hx Congestive Heart Failure, Hx Hypertension Respiratory History: Reports: Hx Asthma, Hx Chronic Obstructive Pulmonary Disease (COPD), Hx Pulmonary Embolism - ABOUT 10 YEARS AGO, Other Respiratory Problems/Disorders - Hx of pulmonary embolismin [id number] per Pt. GI History: Reports: Hx Gastroesophageal Reflux Disease - ON MEDICATION Denies: Hx Ulcer, Other GI Disorders History: Reports: Other Problems/Disorders - abnormal pap 10 yrs ago - no f/u; Essure placed 10 yrs ago - int. pain Denies: Hx Renal Disease Sensory History: Reports: Hx Contacts or Glasses Denies: Hx Hearing Aid Opthamlomology History: Reports: Hx Contacts or Glasses Psychiatric History: Reports: Hx Depression - ON MEDICATION FOR, Hx Schizophrenia - SCHIZOAFFECTIVE Denies: Hx Eating Disorder, Hx of Violent Episodes Against Others - Surgical History Surgery Procedure, Year, and Place: 10/2012, [facility], Cholecystectomy Hx Anesthesia Reactions: No - Immunization History Date of Tetanus Vaccine: 10 yrs ago Date of Influenza Vaccine: 06/2017 Infectious Disease History: No Infectious Disease History: Denies: Hx Human Immunodeficiency Virus (HIV), Traveled Outside the [place] in Last 30 Days - Family History Known Family History: Positive: Cardiac Disease, Hypertension, Diabetes, Other - cancers, blood clots - Social History 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 Negative: Fever, Fatigue Eyes: Negative ENT: Negative Cardiovascular: Negative Negative: Chest Pain Respiratory: Negative Positive: Cough - chronic x years - unchanged. Negative: Shortness Of Breath Positive: Abdominal Pain, Nausea - chronic w/ smoking only, Other - constipation. Negative: Vomiting, Diarrhea Genitourinary: Negative Musculoskeletal: Negative Skin: Negative Neurological: Negative Psychological: Normal All Other Systems Reviewed And Are Negative: Yes Physical Exam Triage Information Reviewed: Yes Vital Signs On Initial Exam: Initial Vitals Temp Pulse Resp BP Pulse Ox 97.9 F 83 15 138/73 98 05/17/18 06:20 05/17/18 06:20 05/17/18 06:20 05/17/18 06:20 05/17/18 06:20 Vital Signs Reviewed: Yes Appearance: Positive: Well-Appearing, No Pain Distress, Well-Nourished Skin: Positive: Warm, Skin Color Reflects Adequate Perfusion, Dry Head/Face: Positive: Normal Head/Face Inspection Eyes: Positive: Normal, EOMI, Conjunctiva Clear - anicteric sclera ENT: Positive: Hearing grossly normal Neck: Positive: Supple Respiratory/Lung Sounds: Positive: Clear to Auscultation, Breath Sounds Present. Negative: Rales, Rhonchi, Wheezes Cardiovascular: Positive: Normal, S1, S2. Negative: Leg Edema Left, Leg Edema Right Abdomen Description: Positive: No Organomegaly, Soft, Other: - LUQ, LLQ, central lower ab and RLQ pain (Pt reports RLQ is worse of all areas palpated). Negative: CVA Tenderness (R), CVA Tenderness (L), Hernia @, Pulsatile Mass Bowel Sounds: Positive: Present Pelvic Exam: Positive: Other - deferred Musculoskeletal: Positive: Normal, Strength/ROM Intact Neurological: Positive: Normal, Sensory/Motor Intact, Alert, Oriented to Person Place, Time, CN Intact II-III Psychiatric: Negative: Affect/Mood Appropriate - blunted affect Diagnostics - Vital Signs Vital Signs Temp Pulse Resp BP Pulse Ox 05/17/18 06:20 97.9 F 83 15 138/73 98 - Laboratory Result Diagrams: 05/17/18 06:58 05/17/18 06:58 Lab Statement: Any lab studies that have been ordered have been reviewed, and results considered in the medical decision making process. Abdominal Pain Fem Course/Dx - Course Course Of Treatment: CT report reveals 2 tiny, non-obstructing renal calculi w/ o hydroureter, no inflammation of bowels but pattern could reveal gastritis/ diarrhea. Enlarged uterus discussed w/ Dr. Piper - after further investigation , pt report h/o abnormal pap 10 yrs ago w/o f/u and placement of Essure 10 yrs ago w/ intermittent pain since. She also admits to irregular periods past few months (menometrorrhagia). Will order U/S per recommendation of radiology as this correlates w/ clinical presentation as well (pt reports she started period again today so may be cause of hematuria). TVUS: no acute findings - uterus normal size - Diagnoses Provider Diagnoses: Abdominal pain Discharge - Sign-Out/Discharge Documenting (check all that apply): Patient Departure - Discharge Plan Condition: Stable Disposition: HOME Prescriptions: Naproxen TAB* [Naprosyn 250 mg TAB*] 500 mg PO Q12HR PRN #20 tab PRN Reason: Pain Patient Education Materials: Acute Abdominal Pain (ED), Acute Diarrhea (ED), Dysfunctional Uterine Bleeding (ED) Referrals: Arthur Rockwell MD [Primary Care Provider] - Jacqueline Ch MD [Medical Doctor] - Additional Instructions: The definitive cause of abdominal pain was not identified today however you may have mild diarrhea of unknown origin. It is important that you stay hydrated and avoid stimulants to prevent making this worse (i.e. Caffeine, nicotine, alcohol, etc.) You've also expressed abnormal menstrual cycles and bleeding over the past few months. Given the fact he had an abnormal Pap smear that was not followed up 10 years ago and you have had intermittent pain with the Essure device implanted 10 years ago it is important that you follow up with a insole lip turner as soon as possible for further investigation. The Essure device has been associated w/ numerous reports of persistent pain, perforation, abnormal uterine bleeding and migration of the device(s). Contact information has been provided here. Please call today to schedule an appointment for follow-up. Your prescribed a pain medication, Aleve, to help with your discomfort. You may take this 2 times a day with food as needed for pain. *If he developed fever, chills, worsening of abdominal pain, heavy vaginal bleeding, fatigue, return to the emergency department. - Billing Disposition and Condition Condition: STABLE Disposition: Home
[2018-05-17 07:08] LABS: ABS Basophils 0 10^3/ul (0-0.2); ABS Eosinophils 0.2 10^3/ul (0-0.6); ABS Lymphocytes 2.5 10^3/ul (1.0-4.8); ABS Monocytes 0.5 10^3/ul (0-0.8); ABS Neutrophils 4.6 10^3/ul (1.5-7.7); ABS Nucleated RBC 0 10^3/ul; Eosinophil % 2.5 % (0-6); Hematocrit 43 % (35-47); Hemoglobin 14.7 g/dl (12.0-16.0); Lymphocyte % 31.5 % (25-47); Mean Corpuscular HGB Conc 34 g/dl (31-36); Mean Corpuscular Hemoglobin 33 pg (27-31); Mean Corpuscular Volume 97 fL (80-97); Mean Platelet Volume 9.5 um3 (7.4-10.4); Nucleated Red Blood Cells % 0.1; Platelet Count 189 10^3/ul (150-450); Red Blood Count 4.42 10^6/ul (4.00-5.40); Red Cell Distribution Width 13 % (10.5-15); White Blood Count 7.8 10^3/ul (3.5-10.8)
[2018-05-17 07:20] LABS: INR 0.94 (0.77-1.02)
[2018-05-17 07:27] LABS: EGFR Non-African American 74.4 (>60)
[2018-05-17 07:28] LABS: Urine Appearance Clear; Urine Blood 3+ (Negative); Urine Color Yellow; Urine Ketones Negative (Negative); Urine Protein 1+(30 mg/dL) (Negative); Urine Red Blood Cell 3+(>10/hpf) (Absent); Urine Specific Gravity 1.027 (1.010-1.030); Urine Urobilinogen Negative (Negative); Urine White Blood Cell 3+(>20/hpf) (Absent)
[2018-05-17] MEDS ORDERED: Ketorolac INJ* 30 MG/ML 1 ML VIAL IV PUSH ONE (08:52)
--- NOTE | 2018-05-17 08:54 | RAD ---
CLINICAL HISTORY: Left flank and abdominal pain as well as diarrhea since the previous day. Relevant surgical history includes cholecystectomy and fallopian tube prophylactic devices dilation COMPARISON: Similar CT examination dated February 25, 2015 TECHNIQUE: Noncontrast CT examination of the abdomen and pelvis from the lung bases through the initial tuberosities. FINDINGS: Unless otherwise specified comparisons below reference the February 25, 2015 CT examination. VISUALIZED LUNG BASES: The visualized lung bases are grossly clear. There is no pleural effusion. ABDOMEN AND PELVIS: Evaluation of the solid organs and vasculature is limited without intravenous contrast. The liver, spleen, pancreas and adrenal glands are grossly normal in appearance. The gallbladder is surgically absent. At the lower pole of each kidney there are small calcifications measuring up to 3 mm on the right and punctate on the left. There is no hydronephrosis. There are no calcifications located in either ureter or in the urinary bladder. Neural contrast has progressed as far as the base of the cecum. There are scattered loops of proximal small bowel that exhibit air-fluid levels measuring 2.5 cm in diameter (axial image 86 for example). There is no definite wall thickening or pathologic wall dilatation..The patient's normal appendix is identified in the right lower quadrant with gas partially filling the lumen measuring 4 mm in diameter (coronal image 56). There is no gross retroperitoneal or mesenteric lymphadenopathy. Tubal ligation clips are seen at the bilateral cornua. The abdominal aorta and iliac arteries are normal in course and diameter. Degenerative changes include multilevel loss of intervertebral disc height involving the lower thoracic and lumbar spine. IMPRESSION: 1. Bilateral nonobstructing collecting system calculi without signs of hydronephrosis or inflammatory change of the urinary system. 2. Normal appendix 3. Scattered air-fluid levels are noted in the proximal small bowel without pathologic dilatation or visible bowel wall thickening. Such an appearance could be associated with mild gastroenteritis and/or diarrheal illness.
--- NOTE | 2018-05-17 10:31 | RAD ---
HISTORY: pelvic pain, large uterus, essure implants COMPARISONS: January 03, 2013 TECHNIQUE: Multiple transverse and longitudinal ultrasound images were obtained of the pelvis using grayscale, color Doppler, and spectral Doppler imaging using the endovaginal transducer. FINDINGS: UTERUS: The uterus measures 11.5 x 6.4 x 7 cm. The uterus is normal in shape, size, contour, and echotexture. Cervical nabothian cysts are noted. ENDOMETRIUM: The endometrial stripe is smooth. The endometrium measures 0.7 cm in thickness. CUL-DE-SAC: There is no free fluid within the cul-de-sac. RIGHT OVARY: The right ovary measures 2.7 x 1.7 x 1.8 cm. Normal venous waveforms are identifiable within the ovary on spectral Doppler imaging. LEFT OVARY: The left ovary measures 2.9 x 1.8 x 2.3 cm. There is a 0.9 x 1 x 0.9 cm simple cyst of the left ovary. BLADDER: The bladder is not well visualized. OTHER: None IMPRESSION: THE ENDOMETRIUM MEASURES UP TO 0.7 CM.
[2018-05-17 11:46] VITALS: BP 113/71
== END 2018-05-17 11:45 | disposition home or self-care (01) ==
LOC: ED 06:18
DX: R10.84 Generalized abdominal pain (principal); F17.210 Nicotine dependence, cigarettes, uncomplicated; Z79.01 Long term (current) use of anticoagulants; Z87.19 Personal history of other diseases of the digestive system
CPT/HCPCS: 36415; 74176; 76830; 80053; 81003; 81015; 83605; 83690; 83735; 84443; 85025; 85610; 85730; 86140; 87086; 96374; 99283; J1885

== ENCOUNTER 2018-08-18 04:02 | Emergency (ER) | payer MEDICARE, OTHER ==
[2018-08-18] MEDS ORDERED: Ketorolac INJ* 30 MG/ML 1 ML VIAL IV PUSH ONE (04:42)
[2018-08-18] MEDS ORDERED: NS 0.9% 1000 ML* 1,000 ML IV ONE (04:42)
[2018-08-18] MEDS ORDERED: Metoclopramide IV* 5 MG/ML 2 ML VIAL IV SLOW PU ONE (04:43)
[2018-08-18] MEDS ORDERED: Pantoprazole IV* 40 MG IV ONE (04:46)
--- NOTE | 2018-08-18 04:47 | ED ---
Abdominal Pain/Female - HPI Summary HPI Summary: This patient is a 48 year old F presenting to [facility] with a chief complaint of diffuse abd pain since 03:30. The patient rates the pain 3/10 in severity. Symptoms aggravated by nothing. Symptoms alleviated by nothing. Patient reports her last BM was 1 day ago. Patient denies N/V/D or fever. Patient has hx of cholecystectomy and an essure procedure. Patient takes Abilify. - History of Current Complaint Chief Complaint: EDAbdPain Stated Complaint: ABD PAIN Time Seen by Provider: 08/18/18 04:29 Hx Obtained From: Patient Hx Last Menstrual Period: 2 weeks Onset/Duration: Sudden Onset, Lasting Hours, Still Present Timing: Constant Severity Initially: Mild Severity Currently: Mild Pain Intensity: 3 Pain Scale Used: 0-10 Numeric Location: Diffuse Radiates: No Aggravating Factor(s): Nothing Alleviating Factor(s): Nothing Associated Signs and Symptoms: Negative: Fever, Nausea, Vomiting, Diarrhea Allergies/Adverse Reactions: Allergies Allergy/AdvReac Type Severity Reaction Status Date / Time bee venom protein (honey bee) Allergy Severe Anaphylatic Verified 08/18/18 04:07 Shock ciprofloxacin [From Cipro] Allergy Intermediate Anaphylatic Verified 08/18/18 04 :07 Shock PMH/Surg Hx/FS Hx/Imm Hx Endocrine/Hematology History: Reports: Hx Anticoagulant Therapy - coumadin FOR PE, Hx Thyroid Disease - HYPOTHYROID, Hx Anemia - A TEENAGER Denies: Hx Diabetes, Hx Systemic Lupus Erythematosus Cardiovascular History: Reports: Hx Embolism, Hx Hypercholesterolemia Denies: Hx Congestive Heart Failure, Hx Hypertension Respiratory History: Reports: Hx Asthma, Hx Chronic Obstructive Pulmonary Disease (COPD), Hx Pulmonary Embolism - ABOUT 10 YEARS AGO, Other Respiratory Problems/Disorders - Hx of pulmonary embolismin [id number] per Pt. GI History: Reports: Hx Gastroesophageal Reflux Disease - ON MEDICATION Denies: Hx Ulcer, Other GI Disorders History: Reports: Other Problems/Disorders - abnormal pap 10 yrs ago - no f/u; Essure placed 10 yrs ago - int. pain Denies: Hx Renal Disease Sensory History: Reports: Hx Contacts or Glasses Denies: Hx Hearing Aid Opthamlomology History: Reports: Hx Contacts or Glasses Psychiatric History: Reports: Hx Depression - ON MEDICATION FOR, Hx Schizophrenia - SCHIZOAFFECTIVE Denies: Hx Eating Disorder, Hx of Violent Episodes Against Others - Surgical History Surgery Procedure, Year, and Place: 10/2012, ESSURE, Cholecystectomy Hx Anesthesia Reactions: No - Immunization History Date of Tetanus Vaccine: 10 yrs ago Date of Influenza Vaccine: 06/2017 Infectious Disease History: No Infectious Disease History: Denies: Hx Human Immunodeficiency Virus (HIV), Traveled Outside the [place] in Last 30 Days - Family History Known Family History: Positive: Cardiac Disease, Hypertension, Diabetes, Other - cancers, blood clots - Social History Alcohol Use: None Hx Substance Use: No Substance Use Type: Reports: None Hx Tobacco Use: Yes Smoking Status (MU): Current Every Day Smoker Type: Cigarettes Amount Used/How Often: 1 ppd Length of Time of Smoking/Using Tobacco: 10+ yrs Have You Smoked in the Last Year: No Review of Systems Negative: Fever Negative: Epistaxis Negative: Chest Pain Negative: Cough Positive: Abdominal Pain - diffuse. Negative: Vomiting, Diarrhea, Nausea All Other Systems Reviewed And Are Negative: Yes Physical Exam - Summary Physical Exam Summary: VITAL SIGNS: Reviewed. GENERAL: Patient is a morbidly obese FEMALE who is lying comfortable in the stretcher. Patient is not in any acute respiratory distress. HEAD AND FACE: No signs of trauma. No ecchymosis, hematomas or skull depressions. No sinus tenderness. EYES: PERRLA, EOMI x 2, No injected conjunctiva, no nystagmus. EARS: Hearing grossly intact. Ear canals and tympanic membranes are within normal limits. MOUTH: Oropharynx within normal limits. NECK: Supple, trachea is midline, no adenopathy, no JVD, no carotid bruit, no c- spine tenderness, neck with full ROM. CHEST: Symmetric, no tenderness at palpation LUNGS: Clear to auscultation bilaterally. No wheezing or crackles. CVS: Regular rate and rhythm, S1 and S2 present, no murmurs or gallops appreciated. ABDOMEN: Soft, mild diffuse tenderness. No signs of distention. No rebound no guarding, and no masses palpated. Bowel sounds are normal. EXTREMITIES: FROM in all major joints, no edema, no cyanosis or clubbing. NEURO: Alert and oriented x 3. No acute neurological deficits. Speech is normal and follows commands. SKIN: Dry and warm Triage Information Reviewed: Yes Vital Signs On Initial Exam: Initial Vitals Temp Pulse Resp BP Pulse Ox 97.4 F 76 16 111/63 100 08/18/18 04:04 08/18/18 04:04 08/18/18 04:04 08/18/18 04:04 08/18/18 04:04 Vital Signs Reviewed: Yes Diagnostics - Vital Signs Vital Signs Temp Pulse Resp BP Pulse Ox 08/18/18 04:04 97.4 F 76 16 111/63 100 - Laboratory Result Diagrams: 08/18/18 04:46 08/18/18 04:46 Lab Statement: Any lab studies that have been ordered have been reviewed, and results considered in the medical decision making process. Abdominal Pain Fem Course/Dx - Course Course Of Treatment: This patient is a 48 year old F presenting to [facility] with a chief complaint of diffuse abd pain since 03:30. Patient reports her last BM was 1 day ago. Patient denies N/V/D or fever. Patient has hx of cholecystectomy and an essure procedure. Test results with no significant abnormalities. In the ED course the patient was given Toradol, IV fluids, Reglan, and Protonix. Patient will be signed out to Dr. Cisneros upon provider shift change pending CT Abd/Pelvis. - Diagnoses Provider Diagnoses: Acute abdominal pain, Constipation Discharge - Sign-Out/Discharge Documenting (check all that apply): Sign-Out Patient - pending CT Abd/Pelvis Signing out patient TO: Zion Cisneros - Discharge Plan Condition: Improved Disposition: HOME Prescriptions: Hyoscyamine Sulfate [Levsin-Sl] 0.125 mg SL Q4H PRN #30 tab.subl PRN Reason: abdominal cramping Polyethylene Glycol 3350* [Miralax*] 17 gm PO TID PRN #20 packet PRN Reason: constipation/bloating Patient Education Materials: Acute Abdominal Pain (ED) Forms: *Work Release Referrals: [facility] [Outside] Arthur Rockwell MD [Primary Care Provider] - Additional Instructions: Abdominal massage, exercises may help. Drink plenty of fluids. [place] diet. Natural fruit juices may help such as apple and prune. Return with increased pain, vomiting, fever, worse or other concerns as discussed. - Billing Disposition and Condition Condition: IMPROVED Disposition: Home - Attestation Statements Document Initiated by Scribe: Yes Documenting Scribe: Antonia Atkins Provider For Whom Scribe is Documenting (Include Credential): Shira Mathias MD Scribe Attestation: Antonia Villarreal, scribed for Shira Mathias MD on 08/18/18 at 1442. Scribe Documentation Reviewed: Yes Provider Attestation: The documentation as recorded by the scribe, Antonia Atkins accurately reflects the service I personally performed and the decisions made by Lenard frey MD Status of Scribe Document: Viewed
[2018-08-18 04:59] LABS: ABS Basophils 0.1 10^3/ul (0-0.2); ABS Eosinophils 0.2 10^3/ul (0-0.6); ABS Lymphocytes 3.2 10^3/ul (1.0-4.8); ABS Monocytes 0.6 10^3/ul (0-0.8); ABS Nucleated RBC 0 10^3/ul; Eosinophil % 2.6 %; Hematocrit 43 % (35-47); Hemoglobin 14.9 g/dl (12.0-16.0); Lymphocyte % 39.8 %; Mean Corpuscular HGB Conc 35 g/dl (31-36); Mean Corpuscular Hemoglobin 34 pg (27-31); Mean Corpuscular Volume 97 fL (80-97); Mean Platelet Volume 8.9 fL (7.4-10.4); Nucleated Red Blood Cells % 0; Platelet Count 179 10^3/ul (150-450); Red Cell Distribution Width 13 % (10.5-15); White Blood Count 8.1 10^3/ul (3.5-10.8)
[2018-08-18 05:03] LABS: Urine Appearance Cloudy; Urine Bilirubin Negative (Negative); Urine Blood Negative (Negative); Urine Color Yellow; Urine Glucose Negative (Negative); Urine Ketones Negative (Negative); Urine Nitrite Negative (Negative); Urine Protein Negative (Negative); Urine Specific Gravity 1.013 (1.010-1.030); Urine Urobilinogen Negative (Negative)
[2018-08-18 05:17] LABS: ALT 23 U/L (7-52); AST 20 U/L (13-39); Albumin 4.4 g/dL (3.2-5.2); Albumin/Globulin Ratio 1.3 (1-3); Alkaline Phosphatase 56 U/L (34-104); Amylase 21 U/L (29-103); Anion Gap 6 mmol/L (2-11); BUN/Creatinine Ratio 14.8 (8-20); Blood Urea Nitrogen 13 mg/dL (6-24); CO2 Carbon Dioxide 23 mmol/L (22-32); Calcium 9.8 mg/dL (8.6-10.3); Chloride 109 mmol/L (101-111); EGFR Non-African American 68.6 (>60); Globulin 3.3 g/dL (2-4); Glucose 91 mg/dL (70-100); Potassium 3.7 mmol/L (3.5-5.0); Sodium 138 mmol/L (135-145); Total Protein 7.7 g/dL (6.4-8.9)
[2018-08-18 05:24] LABS: HCG Pregnancy < 0.60 mIU/mL
[2018-08-18] MEDS ORDERED: Iohexol 300* (CONTRAST) 10 ML SDV IV ONE (05:30)
[2018-08-18 07:14] VITALS: BP 119/71
--- NOTE | 2018-08-18 07:16 | ED ---
Progress - Progress Note Progress Note: Receiving sign out from Dr. Mathias, pending CT A/P. CT A/P: 1. There has been little change from 05/17/2018. No acute interval process is identified. 2. Status post cholecystectomy. 3. Small nonobstructing right renal calculus. Pt will be discharged home with final dx of acute abdominal pain and constipation. Re-Evaluation - Re-Evaluation First Eval Re-Evaluation Time: 07:18 Change: Improved Comment: Pt's pain is gone. Course/Dx - Diagnoses Provider Diagnoses: Acute abdominal pain, Constipation Discharge - Sign-Out/Discharge Documenting (check all that apply): Patient Departure - Discharge, Receiving Sign-Out Receiving patient FROM: Shira Mathias - Discharge Plan Condition: Improved Disposition: HOME Prescriptions: Hyoscyamine Sulfate [Levsin-Sl] 0.125 mg SL Q4H PRN #30 tab.subl PRN Reason: abdominal cramping Polyethylene Glycol 3350* [Miralax*] 17 gm PO TID PRN #20 packet PRN Reason: constipation/bloating Patient Education Materials: Acute Abdominal Pain (ED) Forms: *Work Release Referrals: [facility] [Outside] Arthur Rockwell MD [Primary Care Provider] - Additional Instructions: Abdominal massage, exercises may help. Drink plenty of fluids. [place] diet. Natural fruit juices may help such as apple and prune. Return with increased pain, vomiting, fever, worse or other concerns as discussed. - Attestation Statements Document Initiated by Scribe: Yes Documenting Scribe: Prachi Tamez Provider For Whom Scribe is Documenting (Include Credential): Zion Cisneros MD Scribe Attestation: Prachi Villarreal, scribed for Zion Cisneros MD on 08/18/18 at 0722. Status of Scribe Document: Ready
== END 2018-08-18 07:25 | disposition home or self-care (01) ==
LOC: ED 04:02
DX: R10.84 Generalized abdominal pain (principal); K59.00 Constipation, unspecified; N20.0 Calculus of kidney; Z86.718 Personal history of other venous thrombosis and embolism; Z79.01 Long term (current) use of anticoagulants; K21.9 Gastro-esophageal reflux disease without esophagitis; F32.9 Major depressive disorder, single episode, unspecified; Z90.49 Acquired absence of other specified parts of digestive tract; Z88.1 Allergy status to other antibiotic agents; Z91.030 Bee allergy status; F17.210 Nicotine dependence, cigarettes, uncomplicated
CPT/HCPCS: 36415; 74177; 80053; 81003; 82150; 83690; 84702; 85025; 86140; 96360; 99282; J1885; J2765; Q9967

== ENCOUNTER 2018-08-31 13:37 | Emergency (ER) | payer MEDICARE, OTHER ==
--- NOTE | 2018-08-31 15:54 | ED ---
GI/ HPI - HPI Summary HPI Summary: This patient is a 48 year old presenting to [facility] with a chief complaint of vaginal bleeding since yesterday. Patient states that her period started yesterday and the bleeding was normal. However, today, the bleeding became abnormally heavy, with clots. Patient was referred to the ED by her provider. The pain is rated 0/10 in severity. Symptoms aggravated by nothing. Symptoms alleviated by nothing. Patient denies weakness, pain. Patient has a hx of novasure procedure. - History of Current Complaint Chief Complaint: EDVaginalBleeding Time Seen by Provider: 08/31/18 15:32 Stated Complaint: VAGINAL BLEEDING Hx Obtained From: Patient Hx Last Menstrual Period: 2 weeks Onset/Duration: Still Present Timing: Constant Current Severity: Mild Vaginal Bleeding Description: Clots Pain Intensity: 0 Location of Pain: None Associated Signs and Symptoms: Positive: Negative - weakness, pain - Additional Pertinent History Primary Care Physician: [id number] - Allergy/Home Medications Allergies/Adverse Reactions: Allergies Allergy/AdvReac Type Severity Reaction Status Date / Time bee venom protein (honey bee) Allergy Severe Anaphylatic Verified 08/18/18 04:07 Shock ciprofloxacin [From Cipro] Allergy Intermediate Anaphylatic Verified 08/18/18 04 :07 Shock PMH/Surg Hx/FS Hx/Imm Hx Previously Healthy: No Endocrine/Hematology History: Reports: Hx Anticoagulant Therapy - coumadin FOR PE, Hx Thyroid Disease - HYPOTHYROID, Hx Anemia - A TEENAGER Denies: Hx Diabetes, Hx Systemic Lupus Erythematosus Cardiovascular History: Reports: Hx Embolism, Hx Hypercholesterolemia Denies: Hx Congestive Heart Failure, Hx Hypertension Respiratory History: Reports: Hx Asthma, Hx Chronic Obstructive Pulmonary Disease (COPD), Hx Pulmonary Embolism - ABOUT 10 YEARS AGO, Other Respiratory Problems/Disorders - Hx of pulmonary embolismin [id number] per Pt. GI History: Reports: Hx Gastroesophageal Reflux Disease - ON MEDICATION Denies: Hx Ulcer, Other GI Disorders History: Reports: Other Problems/Disorders - abnormal pap 10 yrs ago - no f/u; Essure placed 10 yrs ago - int. pain Denies: Hx Renal Disease Sensory History: Reports: Hx Contacts or Glasses Denies: Hx Hearing Aid Opthamlomology History: Reports: Hx Contacts or Glasses Psychiatric History: Reports: Hx Depression - ON MEDICATION FOR, Hx Schizophrenia - SCHIZOAFFECTIVE Denies: Hx Eating Disorder, Hx of Violent Episodes Against Others - Surgical History Surgery Procedure, Year, and Place: 10/2012, ESSURE, Cholecystectomy Hx Anesthesia Reactions: No - Immunization History Date of Tetanus Vaccine: 10 yrs ago Date of Influenza Vaccine: 06/2017 Infectious Disease History: No Infectious Disease History: Denies: Hx Human Immunodeficiency Virus (HIV), Traveled Outside the [place] in Last 30 Days - Family History Known Family History: Positive: Cardiac Disease, Hypertension, Diabetes, Other - cancers, blood clots - Social History Alcohol Use: None Hx Substance Use: No Substance Use Type: Reports: None Hx Tobacco Use: Yes Smoking Status (MU): Current Every Day Smoker Type: Cigarettes Amount Used/How Often: 1 ppd Length of Time of Smoking/Using Tobacco: 10+ yrs Have You Smoked in the Last Year: No Review of Systems Negative: Fever Genitourinary: Other - vaginal bleeding Negative: pain Negative: Weakness All Other Systems Reviewed And Are Negative: Yes Physical Exam - Summary Physical Exam Summary: Appearance: Well appearing, no pain distress Skin: warm, dry, reflects adequate perfusion Head/face: normal Eyes: EOMI, PABLO ENT: mucous membranes moist Neck: supple, non-tender Respiratory: CTA, breath sounds present Cardiovascular: RRR, pulses symmetrical Abdomen: non-tender, soft Bowel Sounds: present Pelvic: Small amount of blood in the vault with tiny clots, no pain on exam Musculoskeletal: normal, strength/ROM intact Neuro: normal, sensory motor intact, A&Ox3 Triage Information Reviewed: Yes Vital Signs On Initial Exam: Initial Vitals Temp Pulse Resp BP Pulse Ox 98.2 F 90 16 143/71 98 08/31/18 14:14 08/31/18 14:14 08/31/18 14:14 08/31/18 14:14 08/31/18 14:14 Vital Signs Reviewed: Yes Diagnostics - Vital Signs Vital Signs Temp Pulse Resp BP Pulse Ox 08/31/18 14:14 98.2 F 90 16 143/71 98 - Laboratory Lab Statement: Any lab studies that have been ordered have been reviewed, and results considered in the medical decision making process. GIGU Course/Dx - Course Course Of Treatment: Nurse's notes reviewed. Patient presents with episode of heavy vaginal bleeding. She is pink and warm and her bleeding has tapered off significantly. On exam there is only minimal blood. She has no tenderness. I will start her on Ponstel and have her follow-up with [facility]. - Diagnoses Differential Diagnoses - Female: Other - Menorrhagia, dysfunctional uterine bleeding, perimenopausal bleeding, uterine fibroids Provider Diagnoses: Perimenopause, Menorrhagia Discharge - Sign-Out/Discharge Documenting (check all that apply): Patient Departure - Discharge Plan Condition: Improved Disposition: HOME Prescriptions: Mefenamic Acid 250 mg PO TID #12 capsule Patient Education Materials: Menorrhagia (ED) Referrals: Jacqueline Ch MD [Medical Doctor] - Additional Instructions: Call your [facility] doctor to schedule follow-up tomorrow. Return with heavy or persistent bleeding, lightheadedness, worse, new symptoms or other concerns. - Billing Disposition and Condition Condition: IMPROVED Disposition: Home - Attestation Statements Document Initiated by Kinga: Yes Documenting Scribe: Shona Bonilla Provider For Whom Kinga is Documenting (Include Credential): Zion Cisneros MD Scribe Attestation: Shona Villarreal scribed for Zion Cisneros MD on 08/31/18 at 1951. Scribe Documentation Reviewed: Yes Provider Attestation: The documentation as recorded by the Shona jones accurately reflects the service I personally performed and the decisions made by Zion frey MD Status of Scribe Document: Viewed
[2018-08-31 16:23] VITALS: BP 126/73
== END 2018-08-31 16:21 | disposition home or self-care (01) ==
LOC: ED 13:37
DX: Z78.0 Asymptomatic menopausal state (principal); N92.0 Excessive and frequent menstruation with regular cycle; Z79.01 Long term (current) use of anticoagulants; F17.210 Nicotine dependence, cigarettes, uncomplicated
CPT/HCPCS: 99282

== ENCOUNTER 2019-02-07 12:23 | Emergency (ER) | payer MEDICARE, OTHER ==
[2019-02-07 13:32] VITALS: BP 119/63
--- NOTE | 2019-02-07 13:51 | UC ---
Respiratory Complaint HPI - HPI Summary HPI Summary: 2 DAYS OF COUGH, CONGESTION, FATIGUE, SORE THROAT AND BACK PAIN. NO FEVER, NAUSEA/VOMITING. - History of Current Complaint Chief Complaint: UCRespiratory Stated Complaint: CONGESTION SORE THROAT BACK PAIN Time Seen by Provider: 02/07/19 13:49 Hx Obtained From: Patient Hx Last Menstrual Period: 01/18/19 Onset/Duration: Gradual Onset, Lasting Days, Still Present Timing: Constant Severity Initially: Moderate Severity Currently: Moderate Pain Intensity: 5 Pain Scale Used: 0-10 Numeric Character: Cough: Nonproductive Aggravating Factors: Nothing Alleviating Factors: Nothing Associated Signs And Symptoms: Positive: URI, Nasal Congestion. Negative: Dyspnea, Fever, Wheezing - Allergies/Home Medications Allergies/Adverse Reactions: Allergies Allergy/AdvReac Type Severity Reaction Status Date / Time bee venom protein (honey bee) Allergy Severe Anaphylatic Verified 02/07/19 13:32 Shock ciprofloxacin [From Cipro] Allergy Intermediate Anaphylatic Verified 02/07/19 13 :32 Shock PMH/Surg Hx/FS Hx/Imm Hx Endocrine History: Hypothyroidism Respiratory History: COPD, Asthma Psychological History: Anxiety Other Psychological History: SCHIZOAFFECTIVE D/O Other History Of: Anticoagulant Therapy - coumadin FOR PE - Surgical History Surgical History: Yes Surgery Procedure, Year, and Place: 10/2012, ESSURE, Cholecystectomy - Family History Known Family History: Positive: Cardiac Disease, Hypertension, Diabetes, Other - cancers, blood clots - Social History Alcohol Use: None Substance Use Type: None Smoking Status (MU): Heavy Every Day Tobacco Smoker Type: Cigarettes Amount Used/How Often: 1 ppd Length of Time of Smoking/Using Tobacco: 10+ yrs Have You Smoked in the Last Year: No Household Exposure Type: Cigarettes - Immunization History Most Recent Influenza Vaccination: MAY 2014 Most Recent Tetanus Shot: [facility] Most Recent Pneumonia Vaccination: NONE Review of Systems All Other Systems Reviewed And Are Negative: Yes Constitutional: Positive: Fatigue ENT: Positive: Sore Throat, Nasal Discharge Respiratory: Positive: Cough Cardiovascular: Positive: Negative Gastrointestinal: Positive: Negative Musculoskeletal: Positive: Myalgia - BACK PAIN Physical Exam Triage Information Reviewed: Yes Appearance: Well-Appearing, No Pain Distress, Well-Nourished Vital Signs: Initial Vital Signs Temp 97.9 F 02/07/19 13:28 Pulse 78 02/07/19 13:28 Resp 16 02/07/19 13:28 BP 119/63 02/07/19 13:28 Pulse Ox 98 02/07/19 13:28 Vital Signs Reviewed: Yes Eyes: Positive: Conjunctiva Clear ENT: Positive: Hearing grossly normal, Pharynx normal, TMs normal - PARTIALLY OBSTRUCTED BY CERUMEN Neck: Positive: Supple, Nontender, No Lymphadenopathy Respiratory Exam: Normal Cardiovascular Exam: Normal Abdomen Description: Positive: Soft Musculoskeletal: Positive: No Edema Neurological: Positive: Alert Psychological: Positive: Age Appropriate Behavior Skin: Negative: Rashes Respiratory Course/Dx - Differential Dx/Diagnosis Provider Diagnosis: Acute URI Discharge - Sign-Out/Discharge Documenting (check all that apply): Patient Departure All imaging exams completed and their final reports reviewed: No Studies - Discharge Plan Condition: Stable Disposition: HOME Patient Education Materials: Upper Respiratory Infection (ED) Forms: *Work Release Referrals: [facility] [Outside] - If Needed Additional Instructions: YOUR SYMPTOMS ARE LIKELY VIRALLY MEDIATED AND SHOULD RESOLVE ON THEIR OWN WITH TIME. NO INDICATION FOR ANTIBIOTICS AT PRESENT. REST, HYDRATE, OTC MEDS NEEDED. SEEK FOLLOW-UP IF YOU ARE NOT IMPROVING OVER THE NEXT 1-2 WEEKS. - Billing Disposition and Condition Condition: STABLE Disposition: Home
== END 2019-02-07 14:02 | disposition home or self-care (01) ==
LOC: UCEAST 12:23
DX: J06.9 Acute upper respiratory infection, unspecified (principal); Z79.01 Long term (current) use of anticoagulants; Z88.1 Allergy status to other antibiotic agents; Z91.030 Bee allergy status; F17.210 Nicotine dependence, cigarettes, uncomplicated
CPT/HCPCS: 99211; G0463

== ENCOUNTER 2019-04-24 08:37 | Emergency (ER) | payer MEDICARE ==
[2019-04-24 08:58] LABS: ABS Basophils 0.1 10^3/ul (0-0.2); ABS Eosinophils 0.1 10^3/ul (0-0.6); ABS Lymphocytes 2.5 10^3/ul (1.0-4.8); ABS Monocytes 0.4 10^3/ul (0-0.8); ABS Neutrophils 3.5 10^3/ul (1.5-7.7); Eosinophil % 1.9 %; Hematocrit 42 % (35-47); Hemoglobin 14.5 g/dL (12.0-16.0); Lymphocyte % 37.4 %; Mean Corpuscular HGB Conc 35 g/dL (31-36); Mean Corpuscular Hemoglobin 33 pg (27-31); Mean Corpuscular Volume 96 fL (80-97); Nucleated Red Blood Cells % 0.1; Platelet Count 211 10^3/uL (150-450); Red Blood Count 4.36 10^6 /uL (3.70-4.87); Red Cell Distribution Width 12 % (10-15); White Blood Count 6.6 10^3/uL (3.5-10.8)
[2019-04-24 09:05] LABS: INR 1.05 (0.82-1.09)
[2019-04-24 09:17] LABS: ALT 20 U/L (7-52); AST 19 U/L (13-39); Albumin 4.6 g/dL (3.2-5.2); Albumin/Globulin Ratio 1.5 (1-3); Alkaline Phosphatase 53 U/L (34-104); Anion Gap 8 mmol/L (2-11); BUN/Creatinine Ratio 18.8 (8-20); Blood Urea Nitrogen 16 mg/dL (6-24); CO2 Carbon Dioxide 24 mmol/L (22-32); Calcium 9.4 mg/dL (8.6-10.3); Chloride 106 mmol/L (101-111); EGFR Non-African American 71.1 (>60); Glucose 96 mg/dL (70-100); Potassium 3.7 mmol/L (3.5-5.0); Sodium 138 mmol/L (135-145); Total Protein 7.6 g/dL (6.4-8.9)
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
[2019-04-24 09:31] LABS: CKMB ng/mL 1.1 ng/mL (0.6-6.3)
[2019-04-24 09:36] LABS: HCG Pregnancy < 0.60 mIU/mL
[2019-04-24 10:17] LABS: C Reactive Protein 2.64 mg/L (<8.01); Creatine Kinase 84 U/L (10-223)
[2019-04-24 11:32] VITALS: BP 120/69
== END 2019-04-24 11:32 | disposition home or self-care (01) ==
LOC: ED 08:37
DX: M79.602 Pain in left arm (principal); M47.892 Other spondylosis, cervical region; M48.02 Spinal stenosis, cervical region; E03.9 Hypothyroidism, unspecified; E78.00 Pure hypercholesterolemia, unspecified; J44.9 Chronic obstructive pulmonary disease, unspecified; K21.9 Gastro-esophageal reflux disease without esophagitis; F25.9 Schizoaffective disorder, unspecified; F32.9 Major depressive disorder, single episode, unspecified; F17.210 Nicotine dependence, cigarettes, uncomplicated; Z86.711 Personal history of pulmonary embolism; Z79.01 Long term (current) use of anticoagulants; Z79.899 Other long term (current) drug therapy; Z88.1 Allergy status to other antibiotic agents
CPT/HCPCS: 36415; 70450; 72125; 80053; 82550; 82553; 84484; 84702; 85025; 85610; 86140; 93005; 99282

== ENCOUNTER 2019-09-24 21:34 | Emergency (ER) | payer SELFPAY ==
--- OUTSIDE RECORDS SUMMARY | 2019-09-24 21:52 | XMS REPORT ---
:1970 Author Organization [facility] Care Team Providers Name Role Phone Antonia Hassan Primary Care Physician Unavailable Allergies, Adverse Reactions, Alerts Allergy Code CodeSystem Reaction Severity Criticality Status Start Substance Date pravastatin Chest pain Moderate Active ciprofloxacin Rash Moderate Active Medications Medication Medication Medication Start Stop Route Dose Status Fill Code CodeSystem Date Date Instructions RxNorm Problems Problem Name Code CodeSystem Alternate Alternate Start End Status Narrative Code CodeSystem Date Date Schizoaffective 56877598 SNOMED-CT Active disorder, 11-25 Depressive type Schizoaffective [id number] SNOMED-CT Active disorder, 11-25 Depressive type Relevant diagnostic tests/laboratory data Narrative No Information Procedures Procedure Code CodeSystem Target Date of Status Service Device Device Device Name Site Procedure Delivery Code Name UID Location Comprehensiv 766318 SNOMED-CT () 2018-12-07 complete Mental e medication 0 d Health- services, [place] [address] [place], [place], [id number] Comprehensiv 574368 SNOMED-CT () 2019-01-04 complete Mental e medication 0 d Health- services, [place] [address], [place], [id number] [phone] Comprehensiv 634271 SNOMED-CT () 2019-02-01 complete Mental e medication 0 d Health- services, [place] [address], [place], [id number] [phone] Comprehensiv 097922 SNOMED-CT () 2019-03-08 complete Mental e medication 0 d Health- services, [place] [address], [place], [id number] [phone] Comprehensiv 869097 SNOMED-CT () 2019-04-03 complete Mental e medication 0 d Health- services, [place] per [place] [address], [place], [id number] [phone] Comprehensiv 800138 SNOMED-CT () 2019-05-04 complete Mental e medication 0 d Health- services, [place] per [place] [address], [place], [id number] [id number] Comprehensiv 954640 SNOMED-CT () 2019-06-02 complete Mental e medication 0 d Health- services, [place] [address] [place] [address] [place] [address], [id number] [phone] Comprehensiv 179591 SNOMED-CT () 2019-06-27 complete Mental e medication 0 d Health- services, [place] [address] [place] [address], [id number] [phone] Comprehensiv 432377 SNOMED-CT () 2019-08-09 complete Mental e medication 0 d Health- services, [place] [address], [id number] [phone] Office [place] 350229 SNOMED-CT () 2019-06-27 complete Mental other 6 d Health- outpatient [place] visit for [facility] the [address] [place] [address], of an [place], established [id number] patient, [phone] which requires at least 2 of these 3 villareal components: A problem focused history; A problem focused examination; Straightforw oc medical decision making. Counselin SNOMED-CT () 2018-12-05 complete Mental d Health- [place] [address], [phone] Encounters/Encounter Diagnoses Encounter Name Encounter Diagnosis Diagnosis Name Diagnosis Date of Service Code Code CodeSystem Diagnosis Delivery Location Injectable H2010 [id number] Schizoaffective SNOMED-CT 2019-08-09 Behavioral Medication disorder, Health Administration Depressive type Clinic [address] with Monitoring [place], [place], [phone] Vital Signs No Information Social History Element Description Description Start End Code CodeSystem AdditionalInfo Date Date SexAssignedAtBirth Female 1970-0 F AdministrativeGender 02-26 Hospital Discharge Instructions Reason For Referral Medical Equipment FDA Assessments
--- OUTSIDE RECORDS SUMMARY | 2019-09-24 21:52 | XMS REPORT ---
:1970 Author Organization [facility] Care Team Providers Name Role Phone Caity Derrick Primary Care Physician Unavailable Allergies, Adverse Reactions, Alerts Allergy Code CodeSystem Reaction Severity Criticality Status Start Substance Date pravastatin Chest pain Moderate Active ciprofloxacin Rash Moderate Active Medications Medication Medication Medication Start Stop Route Dose Status Fill Code CodeSystem Date Date Instructions RxNorm Problems Problem Name Code CodeSystem Alternate Alternate Start End Status Narrative Code CodeSystem Date Date Schizoaffective 84197192 SNOMED-CT Active disorder, 11-25 Depressive type Schizoaffective 44752811 SNOMED-CT Active disorder, 11-25 Depressive type Relevant diagnostic tests/laboratory data Narrative No Information Procedures Procedure Code CodeSystem Target Date of Status Service Device Device Device Name Site Procedure Delivery Code Name UID Location Comprehensiv [id number] SNOMED-CT () 2018-12-07 complete Mental e medication 0 d Health- services, [place] [address] [place], [place], [id number] [phone] Comprehensiv 610435 SNOMED-CT () 2019-01-04 complete Mental e medication 0 d Health- services, [place] per [place] [address] [place], [place], [id number] [phone] Comprehensiv 316711 SNOMED-CT () 2019-02-01 complete Mental e medication 0 d Health- services, [place] per [place] [address] [place], [place], [id number] [phone] Comprehensiv 703465 SNOMED-CT () 2019-03-08 complete Mental e medication 0 d Health- services, [place] [address] [place], [place], [id number] [phone] Comprehensiv 220419 SNOMED-CT () 2019-04-03 complete Mental e medication 0 d Health- services, [place] per [place] [address] [facility] [place], [id number] [phone] Comprehensiv 306785 SNOMED-CT () 2019-05-04 complete Mental e medication 0 d Health- services, [place] per [address] [place] [address], [id number] [id number] Comprehensiv 933207 SNOMED-CT () 2019-06-02 complete Mental e medication 0 d Health- services, [place] [address], [id number] [phone] Comprehensiv 610576 SNOMED-CT () 2019-06-27 complete Mental e medication 0 d Health- services, [place] [address] [place] [address], [id number] [phone] Comprehensiv 835222 SNOMED-CT () 2019-08-09 complete Mental e medication 0 d Health- services, [place] [address] [place] [address], [id number] [phone] Comprehensiv 941159 SNOMED-CT () 2019-09-04 complete Mental e medication 0 d Health- services, [place] per [address] [place] [address], [id number] [phone] Office or [id number] SNOMED-CT () 2019-06-27 complete Mental other 6 d Health- outpatient [place] visit for [address], of an [place], established [phone] patient, [phone] which requires at least 2 of these 3 villareal components: A problem focused history; A problem focused examination; Straightforw oc medical decision making. Counselin SNOMED-CT () 2019-09-04 complete Mental d Health- [place], [id number] [phone] SNOMED-CT () 2019-09-11 complete Mental d Health- [place], [phone] SNOMED-CT () 2018-12-05 complete Mental d Health- [place], [phone] [phone] Encounters/Encounter Diagnoses Encounter Encounter Diagnosis Diagnosis Name Diagnosis Date of Service Name Code Code CodeSystem Diagnosis Delivery Location Non-Billabl [address] [id number] Schizoaffective SNOMED-CT 2019-09-13 Behavioral e disorder, Health Depressive type Clinic , , , Vital Signs No Information Social History Element Description Description Start End Code CodeSystem AdditionalInfo Date Date SexAssignedAtBirth Female F AdministrativeGender 02-26 Hospital Discharge Instructions Reason For Referral Medical Equipment FDA Assessments
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
[2019-09-24 22:31] LABS: ABS Eosinophils 0.3 10^3/ul (0-0.6); ABS Lymphocytes 3.3 10^3/ul (1.0-4.8); ABS Monocytes 0.6 10^3/ul (0-0.8); ABS Neutrophils 3.4 10^3/ul (1.5-7.7); Eosinophil % 3.8 %; Hematocrit 41 % (35-47); Hemoglobin 14.3 g/dL (12.0-16.0); Lymphocyte % 43.2 %; Mean Corpuscular HGB Conc 35 g/dL (31-36); Mean Corpuscular Hemoglobin 34 pg (27-31); Mean Corpuscular Volume 97 fL (80-97); Mean Platelet Volume 9.2 fL (7.4-10.4); Nucleated Red Blood Cells % 0.1; Platelet Count 197 10^3/uL (150-450); Red Blood Count 4.26 10^6 /uL (3.70-4.87); Red Cell Distribution Width 12 % (10-15); White Blood Count 7.6 10^3/uL (3.5-10.8)
[2019-09-24 22:46] LABS: Albumin 4.4 g/dL (3.2-5.2); Albumin/Globulin Ratio 1.4 (1-3); Calcium 9.2 mg/dL (8.6-10.3); EGFR African American 65.9 (>60); EGFR Non-African American 54.5 (>60); Globulin 3.2 g/dL (2-4); Potassium 3.7 mmol/L (3.5-5.0); Total Bilirubin 0.3 mg/dL (0.2-1.0); Total Protein 7.6 g/dL (6.4-8.9)
[2019-09-24 23:48] VITALS: BP 121/76
== END 2019-09-24 23:50 | disposition home or self-care (01) ==
LOC: ED 21:34
DX: R07.9 Chest pain, unspecified (principal); J44.9 Chronic obstructive pulmonary disease, unspecified; Z86.711 Personal history of pulmonary embolism; F20.9 Schizophrenia, unspecified; Z79.01 Long term (current) use of anticoagulants; E78.00 Pure hypercholesterolemia, unspecified
CPT/HCPCS: 36415; 71045; 80053; 83605; 84484; 85025; 93005; 99282

== ENCOUNTER 2019-11-02 10:31 | Emergency (ER) | payer SELFPAY ==
--- OUTSIDE RECORDS SUMMARY | 2019-11-02 10:39 | XMS REPORT ---
:1970 Author Organization [facility] Care Team Providers Name Role Phone BERRY TENISHA Primary Care Physician Unavailable Allergies, Adverse Reactions, Alerts Allergy Code CodeSystem Reaction Severity Criticality Status Start Substance Date pravastatin Chest pain Moderate Active ciprofloxacin Rash Moderate Active Medications Medication Medication Medication Start Stop Route Dose Status Fill Code CodeSystem Date Date Instructions RxNorm Problems Problem Name Code CodeSystem Alternate Alternate Start End Status Narrative Code CodeSystem Date Date Schizoaffective 10366058 SNOMED-CT Active disorder, 11-25 Depressive type Schizoaffective [id number] SNOMED-CT Active disorder, 11-25 Depressive type Relevant diagnostic tests/laboratory data Narrative No Information Procedures Procedure Code CodeSystem Target Date of Status Service Device Device Device Name Site Procedure Delivery Code Name UID Location Comprehensiv 991189 SNOMED-CT () 2018-12-07 complete Mental e medication 0 d [facility]- services, [place] [address], [place], [id number] Comprehensiv 642805 SNOMED-CT () 2019-01-04 complete Mental e medication 0 d Health- services, [place] [address], [place], [id number] Comprehensiv 317747 SNOMED-CT () 2019-02-01 complete Mental e medication 0 d Health- services, [place] [address], [place], [id number] [phone] Comprehensiv 182068 SNOMED-CT () 2019-03-08 complete Mental e medication 0 d Health- services, [place] [address], [place], [id number] [id number] Comprehensiv 402487 SNOMED-CT () 2019-04-03 complete Mental e medication 0 d Health- services, [place] [address], [place], [id number] Comprehensiv 922944 SNOMED-CT () 2019-05-04 complete Mental e medication 0 d Health- services, [place] [address], [place], [id number] [id number] Comprehensiv 514519 SNOMED-CT () 2019-06-02 complete Mental e medication 0 d Health- services, [place] [address] [place] [address] [place] [address], [id number] Comprehensiv 233754 SNOMED-CT () 2019-06-27 complete Mental e medication 0 d Health- services, [place] [address] [place] [address], [id number] [phone] Office or [id number] SNOMED-CT () 2019-06-27 complete Mental other 6 d Health- outpatient [place] visit for [address], established [id number] patient, [id number] which requires at least 2 of these 3 villareal components: A problem focused history; A problem focused examination; Straightforw oc medical decision making. Counselin Comprehensiv 455654 SNOMED-CT () 2019-08-09 complete Mental e medication 0 d Health- services, [place] [address] [place] [address], [id number] [id number] Comprehensiv 858203 SNOMED-CT () 2019-09-04 complete Mental e medication 0 d Health- services, [place] [facility] [address] [place] [address], [id number] [id number] SNOMED-CT () 2019-09-04 complete Mental d Health- [place] [address], [phone] SNOMED-CT () 2019-09-11 complete Mental d Health- [place] [address], [id number] [phone] Office [place] 852940 SNOMED-CT () 2019-09-27 complete Mental other 7 d Health- outpatient [place] visit for [address], established [id number] patient, [id number] which requires at least 2 of these 3 villareal components: An expanded problem focused history; An expanded problem focused examination; Medical decision making of low Comprehensiv 546432 SNOMED-CT () 2019-10-03 complete Mental e medication 0 d [facility] per [address], [place], [id number] [phone] SNOMED-CT () 2018-12-05 complete Mental d Health- [facility] [address], [place], [id number] [phone] Encounters/Encounter Diagnoses Encounter Name Encounter Diagnosis Diagnosis Name Diagnosis Date of Service Code Code CodeSystem Diagnosis Delivery Location Injectable H2010 [id number] Schizoaffective SNOMED-CT 2019-10-03 Behavioral Medication disorder, Health Administration Depressive type Clinic [address] [place], [place], [id number] Vital Signs No Information Social History Element Description Description Start End Code CodeSystem AdditionalInfo Date Date SexAssignedAtBirth Female F AdministrativeGender 02-26 Hospital Discharge Instructions Reason For Referral Medical Equipment FDA Assessments
[2019-11-02 10:42] VITALS: BP 126/72
--- NOTE | 2019-11-02 10:57 | UC ---
General HPI - HPI Summary HPI Summary: last night noted right eye redness, draining and itching. No issues with left eye. No issues with vision loss. Denies any URI s/s. No fever Wears glasses Has no insurance and does not get paid until tomorrow Meds; REviewed Smokes 1/2-1 ppd - states she does hear herself wheezing at night. Chronic cough. No SOB - History of Current Complaint Chief Complaint: UCEye Stated Complaint: EYE ISSUE Time Seen by Provider: 11/02/19 10:45 Hx Last Menstrual Period: Pain Intensity: 6 - Allergy/Home Medications Allergies/Adverse Reactions: Allergies Allergy/AdvReac Type Severity Reaction Status Date / Time bee venom protein (honey bee) Allergy Severe Anaphylatic Verified 11/02/19 10:42 Shock ciprofloxacin [From Cipro] Allergy Intermediate Anaphylatic Verified 11/02/19 10 :42 Shock Home Medications: Home Medications ARIPiprazole [Abilify Maintena] 400 mg IM MONTHLY 03/23/18 [History Confirmed ] Ibuprofen TAB* [Motrin TAB* 600 MG] 600 mg PO Q6H PRN 04/26/19 [History Confirmed 11/02/19] Albuterol HFA INHALER* [Ventolin HFA Inhaler*] 2 puff INH Q4H PRN #1 mdi [Rx] Polymyx/Trimethoprim OPTH* [Polytrim OPHTH*] 2 drop RIGHT EYE Q8HR #1 btl [Rx] PMH/Surg Hx/FS Hx/Imm Hx Previously Healthy: Yes Other History Of: Anticoagulant Therapy - coumadin FOR PE - Surgical History Surgical History: Yes Surgery Procedure, Year, and Place: 10/2012, [facility], Cholecystectomy - Family History Known Family History: Positive: Cardiac Disease, Hypertension, Diabetes, Other - cancers, blood clots - Social History Alcohol Use: None Substance Use Type: None Smoking Status (MU): Heavy Every Day Tobacco Smoker Type: Cigarettes Amount Used/How Often: 1 ppd Length of Time of Smoking/Using Tobacco: 10+ yrs Have You Smoked in the Last Year: No Household Exposure Type: Cigarettes - Immunization History Most Recent Influenza Vaccination: MAY 2014 Most Recent Tetanus Shot: [facility] Most Recent Pneumonia Vaccination: NONE Review of Systems All Other Systems Reviewed And Are Negative: Yes Physical Exam Triage Information Reviewed: Yes Appearance: Well-Appearing Vital Signs: Initial Vital Signs Temp 96.6 F 11/02/19 10:37 Pulse 82 11/02/19 10:37 Resp 18 11/02/19 10:37 BP 126/72 11/02/19 10:37 Pulse Ox 99 11/02/19 10:37 Eyes: Positive: Discharge, Other: - right eye conjunctival injection left eye: normal ENT: Positive: Pharyngeal erythema, Other - TM's - cerumen b/l Neck: Positive: Supple, Nontender Respiratory: Positive: Decreased breath sounds, Other: - b/l expiratory wheezing Cardiovascular: Positive: RRR, No Murmur Course/Dx - Course Course Of Treatment: This is a 49 yr old with right eye redness/drainage Conjunctivitis Incidentally noted wheezing on exam Plan Start eye drops as prescribed Good handwashing to prevent spread to other eye Recommend albuterol inhaler 2 puffs every 4 hours as needed for cough/wheeze Recommend that you quit smoking If symptoms persist or worsen recommend follow up with PCP or return to urgent care - Diagnoses Provider Diagnosis: Conjunctivitis, Reactive airway disease Discharge ED - Sign-Out/Discharge Documenting (check all that apply): Patient Departure All imaging exams completed and their final reports reviewed: No Studies - Discharge Plan Condition: Good Disposition: HOME Prescriptions: Albuterol HFA INHALER* [Ventolin HFA Inhaler*] 2 puff INH Q4H PRN #1 mdi PRN Reason: Cough Polymyx/Trimethoprim OPTH* [Polytrim OPHTH*] 2 drop RIGHT EYE Q8HR #1 btl Patient Education Materials: Conjunctivitis (ED) Forms: *Work Release Referrals: Jamshid Cifuentes MD [Primary Care Provider] - Additional Instructions: Start eye drops as prescribed Good handwashing to prevent spread to other eye Recommend albuterol inhaler 2 puffs every 4 hours as needed for cough/wheeze Recommend that you quit smoking If symptoms persist or worsen recommend follow up with PCP or return to urgent care - Billing Disposition and Condition Condition: GOOD Disposition: Home
== END 2019-11-02 11:09 | disposition home or self-care (01) ==
LOC: UCEAST 10:31
DX: H10.9 Unspecified conjunctivitis (principal); J45.909 Unspecified asthma, uncomplicated; F17.210 Nicotine dependence, cigarettes, uncomplicated; Z91.030 Bee allergy status; Z88.1 Allergy status to other antibiotic agents; Z86.711 Personal history of pulmonary embolism; Z79.01 Long term (current) use of anticoagulants
CPT/HCPCS: 99212; G0463